=== PATIENT | male | born 1940 | race Caucasian/White ===

== ENCOUNTER 2020-12-04 18:25 | Emergency (ER) | payer MEDICARE, SELFPAY ==
[2020-12-04 18:27] VITALS: BP 159/69; PULSE 89; PULSE 90; RESP 17; TEMP 36.9; O2SAT 97; BMI 26.7
--- NOTE | 2020-12-04 19:00 | RAD_ITS ---
STUDY: X-RAY - RIGHT SHOULDER REASON FOR EXAM: Male, 80 years old. PT REPORTS FALLING LETI AND AGAIN TODAY, C/O RIGHT SHOULDER AND RIGHT UPPER BACK PAIN. DENIES LOC. TECHNIQUE: 2 view(s) of the shoulder. COMPARISON: None. FINDINGS: An acute comminuted displaced fracture of the inferior tip and lateral aspect of the scapula is present. There are also mildly displaced fractures at the lateral margins of the third, fourth, fifth, sixth, and seventh ribs with small underlying pleural hematoma/fluid but no visualized pneumothorax or consolidation. No additional acute fractures are seen. Rotator cuff suture anchors are present in the humeral head. There is moderate degenerative arthrosis of the glenohumeral articulation. Normal acromioclavicular joint. Normal acromion. Normal humeral head and visualized proximal humerus. The soft tissue structures are unremarkable. Normal visualized pulmonary apex. RAD/Shoulder min 2 Views IMPRESSION: 1. Acute comminuted fracture at the inferior tip of the right scapula 2. There are also mildly displaced fractures at the lateral margins of the third, fourth, fifth, sixth, and seventh ribs with small underlying pleural hematoma/fluid but no visualized pneumothorax or consolidation. Electronically Signed: Aldo Flowers MD at 20:00 EST , Service support ,
--- NOTE | 2020-12-04 19:29 | ED.VIS.GEN ---
History of Present Illness Chief Complaint: Upper Extremity Injury Informant: Patient, Family Narrative: 80-year-old male states that he is fallen twice in the past several days. He states the first time he slept today he lost his balance. He states on Thursday he sustained abrasion to his left elbow and injured his back but that that is healing up. Today he was bending forward lost his balance and landed on his right shoulder. He notes limited range of motion to the right shoulder. He denies any head injury. No nausea headache neck pain. Past Medical History - Allergies and Home Meds Allergies/Adverse Reactions: Allergies Sulfa (Sulfonamide Antibiotics) Allergy (Verified 12/04/20 18:30) NEEDS FOLLOW-UP Primary Care Physician: NOT,DEFINED [NON-STAFF] - Surgical History: noncontributory Lives: Spouse/ Significant Other Smoking Status: Never smoker Drugs: None Review of Systems General: Denies: Chills, Fever, Sweats Eyes: Denies: Visual changes - bilaterally, Diplopia ENT: Denies: Rhinorrhea, Sore throat Cardiovascular: Denies: Chest pain, Palpitations Respiratory: Denies: Dyspnea, Cough, Dyspnea on exertion Gastrointestinal: Denies: Abdominal pain, Nausea, Vomiting, Diarrhea, Melena, Hematochezia Genitourinary: Denies: Dysuria, Hematuria, Frequency Musculoskeletal: Reports: Extremity Pain. Denies: Back pain Skin: Reports: Abrasions. Denies: Rash, Wounds Neurological: Denies: Headache, Weakness, Numbness Physical Exam Vital Signs/Narrative: Vital Signs Temp Pulse Resp BP Pulse Ox 12/04/20 18:27 98.4 F 90 17 159/69 H 97 Inital Vital Signs reviewed: Yes General: Well nourished, Well developed, No Acute Distress Head: Normocephalic, Atraumatic Eyes: Perrl, EOMI ENT: Moist mucous membranes, No rhinorrhea Neck: Supple, Nontender Cardiovascular: Regular rate, Regular rhythm, No murmurs Respiratory: No distress, CTA bilaterally, Chest nontender Abdomen: Soft, Nontender, Nondistended, Normal bowel sounds Back: Spinal tenderness - Midline tenderness and paraspinal tenderness in the lumbar region Extremities: No edema, Tenderness - Tender to est[place] patient diffusely over the right shoulder. No obvious deformity. Skin: Normal color, No rash, Trauma - There is an abrasion that appears to be healing over the lateral aspect of the left elbow. Neurological: Alert, Oriented x3, Cranial nerves II-XII grossly intact, Normal Strength, Normal Sensation Psychological: Normal affect, Normal Mood Diagnostic/Tx/Re-eval Clinical Impression(s) from Imaging Studies Shoulder X-Ray 12/04/20 19:00 IMPRESSION: 1. Acute comminuted fracture at the inferior tip of the right scapula 2. There are also mildly displaced fractures at the lateral margins of the third, fourth, fifth, sixth, and seventh ribs with small underlying pleural hematoma/fluid but no visualized pneumothorax or consolidation. Electronically Signed: Aldo Flowers MD at 20:00 EST , Service support , Brain CT 12/04/20 20:06 IMPRESSION: No acute intracranial abnormality. Chronic ischemic and atrophic changes. Electronically Signed: Anthony Bray MD at 21:42 EST Tel , Service support , Cervical Spine CT 12/04/20 20:06 IMPRESSION: No fracture or dislocation in the cervical spine. Mild to moderate degenerative change which is more pronounced in the lower cervical spine. Electronically Signed: Anthony Bray MD at 21:49 EST Tel , Service support , Chest CT 12/04/20 20:06 IMPRESSION: Mild compression fracture of L2 vertebral body. Comminuted fracture of the body of the right scapula. Fracture of the right fourth rib. No pneumothorax. No additional acute traumatic findings in the thorax. N.B. : The above information has been verbally conveyed by Anthony Bray MD to Frandy Cheung MD, on 12/04/2020 22:03:46 (ET). Electronically Signed: Anthony Bray MD at 22:05 EST Tel , Service support , ADDENDUM: 12/04/202211 IMPRESSION: Mild compression fracture of L2 vertebral body. Comminuted fracture of the body of the right scapula. Fracture of the right fourth rib. No pneumothorax. No additional acute traumatic findings in the thorax. N.B. : The above information has been verbally conveyed by Anthony Bray MD to Frandy Cheung MD, on 12/04/2020 22:03:46 (ET). Electronically Signed: Anthony Bray MD at 22:05 EST Tel , Service support , Lumbar Spine CT 12/04/20 22:04 IMPRESSION: 1. Acute compression fracture of the L2 vertebral body 2. Multilevel degenerative changes, as described above. Electronically Signed: Aldo Flowers MD at 23:07 EST , Service support , Laboratory Last Values WBC 5.4 K/mm3 (4.4-11.0) 12/04/20 20:30 RBC 4.09 M/mm3 (4.6-6.2) L 12/04/20 20:30 Hgb 13.6 g/dL (13.0-16.5) 12/04/20 20:30 Hct 39.8 % (40-54) L 12/04/20 20:30 MCV 97.3 fL (80-94) H 12/04/20 20:30 MCH 33.3 pg (27.0-32.0) H 12/04/20 20:30 MCHC 34.2 g/dL (32-36) 12/04/20 20:30 RDW Std Deviation 44.9 fl (35.1-43.9) H 12/04/20 20:30 RDW Coeff of Dax 12.5 % (11.6-14.6) 12/04/20 20:30 Plt Count 170 K/mm3 (150-450) 12/04/20 20:30 MPV 9.3 fl (6.2-12.0) 12/04/20 20:30 Immature Gran % (Auto) 0.400 % (0.0-0.9) 12/04/20 20:30 Neut % (Auto) 73.3 % (47-70) H 12/04/20 20:30 Lymph % (Auto) 14.4 % (19-41) L 12/04/20 20:30 [place] % (Auto) 10.8 % (0-10) H 12/04/20 20:30 Eos % (Auto) 0.4 % (0-5) 12/04/20 20:30 Baso % (Auto) 0.7 % (0-1) 12/04/20 20:30 Absolute Neuts (auto) 3.9 X10^3/uL (2.0-7.7) 12/04/20 20:30 Absolute Lymphs (auto) 0.77 X10^3/uL (0.83-4.51) L 12/04/20 20:30 Nucleated RBC % 0 % (0-5) 12/04/20 20:30 PT 14.1 SECONDS (11.7-14.9) 12/04/20 20:30 INR 1.1 12/04/20 20:30 APTT 33.4 Seconds (24.1-36.2) 12/04/20 20:30 Sodium 133 mmol/L (136-145) L 12/04/20 20:30 Potassium 3.8 mmol/L (3.5-5.1) 12/04/20 20:30 Chloride 98 mmol/L (98-107) 12/04/20 20:30 Carbon Dioxide 25.0 mmol/L (21.0-32.0) 12/04/20 20:30 Anion Gap 10 (5-15) 12/04/20 20:30 BUN 9 mg/dL (7-18) 12/04/20 20:30 Creatinine 0.83 mg/dL (0.70-1.30) 12/04/20 20:30 Estim Creat Clear Calc 70.85 ml/min 12/04/20 20:30 Est GFR (MDRD) Af Amer 114 mL/min (>60) 12/04/20 20:30 Est GFR (MDRD) Non-Af 94 mL/min (>60) 12/04/20 20:30 BUN/Creatinine Ratio 10.8 RATIO (10-20) 12/04/20 20:30 Glucose 97 mg/dL (74-106) 12/04/20 20:30 Calcium 8.6 mg/dL (8.5-10.1) 12/04/20 20:30 Total Bilirubin 0.60 mg/dL (0.20-1.00) 12/04/20 20:30 AST 26 U/L (15-37) 12/04/20 20:30 ALT 19 U/L (16-61) 12/04/20 20:30 Alkaline Phosphatase 110 U/L (45-117) 12/04/20 20:30 Total Protein 7.1 g/dL (6.4-8.2) 12/04/20 20: Albumin 3.2 g/dL (3.2-5.0) 12/04/20 20: Globulin 3.9 g/dL (2.2-4.2) 12/04/20 20:30 Albumin/Globulin Ratio 0.8 RATIO (0.9-2.4) L 12/04/20 20:30 - Medical Decision Making Patient received oxycodone for pain. 80-year-old male found to have a body of the scapula fracture with displacement. This was reviewed with on-call orthopedics who recommends trauma Ortho evaluation. He was also found to have a fourth rib fracture but no hemo or pneumothorax or pulmonary contusion noted. There was noted to be an L2 compression fracture with 40 to 50% loss of height. Due to the multiple injuries trauma center evaluation was recommended he is a [facility] patient would [facility] to go to [facility]. I spoke with [facility] and they have accepted the patient to the emergency department. Imaging will be pushed through to them. He will also have a copy of his disc sent with him. ED Disposition - Plan for ED Patient: Disposition: [facility] Diagnosis: Right scapula fracture, Compression fracture of L2, Right rib fracture, Frequent falls Referrals: NOT,DEFINED [NON-STAFF] -
--- NOTE | 2020-12-04 20:06 | CT_ITS ---
STUDY: CT CHEST WITH CONTRAST REASON FOR EXAM: Male, 80 years old. Trauma RADIATION DOSAGE (If Supplied By Facility): CTDIvol = ( 7.49 ) mGy, DLP = ( 707.43 ) mGycm TECHNIQUE: Transaxial imaging was performed following intravenous administration of 100 cc of ISOVUE-370 ml of 100mL Isovue-370 contrast material. Coronal and sagittal reformatted images were created. Individualized dose optimization techniques were used for this CT. COMPARISON: None FINDINGS: The study is limited by patient motion and by streak artifact due to the patient''s arms being at his sides. There is a calcified granuloma in the left lower lobe. There are no pulmonary infiltrates or pleural effusions. There is atelectasis noted in the lung bases. There is no pneumothorax. The heart and pericardium are within normal limits. There is no thoracic lymphadenopathy. There is no evidence of thoracic aortic aneurysm. Images through the upper abdomen demonstrate a cyst in the left kidney. There is a comminuted fracture of the body of the right scapula. There is a fracture of the right fourth rib. There is a mild compression fracture (approximately 25% loss of height) of the L2 vertebral body. The remainder of the visualized thoracic osseous structures are intact. CT/Chest WITH Contrast IMPRESSION: Mild compression fracture of L2 vertebral body. Comminuted fracture of the body of the right scapula. Fracture of the right fourth rib. No pneumothorax. No additional acute traumatic findings in the thorax. N.B. : The above information has been verbally conveyed by Anthony Bray MD to Frandy Cheung MD, on 12/04/2020 22:03:46 (ET). Electronically Signed: Anthony Bray MD at 22:05 EST Tel , Service support ,
--- NOTE | 2020-12-04 20:06 | CT_ITS ---
STUDY: CT CERVICAL SPINE WITHOUT CONTRAST REASON FOR EXAM: Male, 80 years old. Trauma RADIATION DOSAGE (If Supplied By Facility): CTDIvol = ( 21.47 ) mGy, DLP = ( 454.33 ) mGycm TECHNIQUE: High resolution transaxial imaging was performed without contrast material. Sagittal and coronal images were reconstructed. Individualized dose optimization techniques were used for this CT. COMPARISON: None available. FINDINGS: There is no evidence of fracture or dislocation in the cervical spine. The dens is intact. Alignment is normal. The vertebral body heights are well-maintained. There are [id number] degenerative changes which are more pronounced in the lower cervical spine. The visualized paraspinal soft tissues are within normal limits. CT/Spine Cervical without Contras IMPRESSION: No fracture or dislocation in the cervical spine. Mild to moderate degenerative change which is more pronounced in the lower cervical spine. Electronically Signed: Anthony Bray MD at 21:49 EST Tel , Service support ,
--- NOTE | 2020-12-04 20:06 | CT_ITS ---
STUDY: CT BRAIN WITHOUT CONTRAST REASON FOR EXAM: Male, 80 years old. Trauma RADIATION DOSAGE (If Supplied By Facility): CTDIvol = ( 44.99 ) mGy, DLP = ( 849.54 ) mGycm TECHNIQUE: Transaxial CT imaging of the brain was performed without administration of intravenous contrast material. Individualized dose optimization techniques were used for this CT. COMPARISON: None. FINDINGS: There is no acute bleed or infarct. There are chronic ischemic and atrophic changes. The ventricles are normal in configuration. There is no hydrocephalus. The visualized paranasal sinuses are clear. The mastoid air cells are well aerated. There is no skull fracture. CT/Brain/Head without Contrast IMPRESSION: No acute intracranial abnormality. Chronic ischemic and atrophic changes. Electronically Signed: Anthony Bray MD at 21:42 EST Tel , Service support ,
[2020-12-04] MEDS: oxyCODONE 5 MG Tablet 10 MG PO (20:10)
[2020-12-04 20:44] LABS: Absolute Lymphocyte Count 0.77 X10^3/uL (0.83-4.51); Absolute Neutrophil Count 3.9 X10^3/uL (2.0-7.7); Basophil# 0.04 X10^3/uL; Basophil% 0.7 % (0-1); Eosinophil# 0.02 X10^3/uL; Eosinophils% 0.4 % (0-5); Hematocrit 39.8 % (40-54); Hemoglobin 13.6 g/dL (13.0-16.5); Lymphocyte # 0.77 X10^3/ul (4.0); Lymphocyte % 14.4 % (19-41); Mean Corp Hgb Conc 34.2 g/dL (32-36); Mean Corpuscular Hgb 33.3 pg (27.0-32.0); Mean Corpuscular Volume 97.3 fL (80-94); Mean Platelet Vol. 9.3 fl (6.2-12.0); Monocyte# 0.58 X10^3/uL; Monocyte% 10.8 % (0-10); NRBC Flagged by Analyzer 0 % (0-5); Neutrophil # 3.93 X10^3/uL (2.7-7.7); Neutrophil % 73.3 % (47-70); Platelet Count 170 K/mm3 (150-450); RBC Distribution Width CV 12.5 % (11.6-14.6); RBC Distribution Width SD 44.9 fl (35.1-43.9); Red Blood Count 4.09 M/mm3 (4.6-6.2); White Blood Count 5.4 K/mm3 (4.4-11.0)
[2020-12-04 20:53] LABS: International Normalized Ratio 1.1; Prothrombin Time (Protime)PT. 14.1 SECONDS (11.7-14.9)
[2020-12-04 20:54] LABS: Partial Thromboplast Time 33.4 Seconds (24.1-36.2)
[2020-12-04 21:03] LABS: ALB/GLOB Ratio 0.8 RATIO (0.9-2.4); AST(SGOT) 26 U/L (15-37); Alanine Aminotransfer ALT/SGPT 19 U/L (16-61); Albumin, Serum 3.2 g/dL (3.2-5.0); Alkaline Phosphatase 110 U/L (45-117); Anion Gap 10 (5-15); BUN 9 mg/dL (7-18); BUN/Creat Ratio 10.8 RATIO (10-20); Calcium,Total 8.6 mg/dL (8.5-10.1); Chloride 98 mmol/L (98-107); Creatinine, Serum 0.83 mg/dL (0.70-1.30); EST Glomerular Filtration Rate 94 mL/min (>60); Est Glom Filt Rate - Afr Amer 114 mL/min (>60); Estimated Creatinine Clearance 70.85 ml/min; Globulin 3.9 g/dL (2.2-4.2); Glucose 97 mg/dL (74-106); Potassium 3.8 mmol/L (3.5-5.1); Protein, Total 7.1 g/dL (6.4-8.2); Sodium Level 133 mmol/L (136-145)
[2020-12-04 21:39] VITALS: BP 180/83; PULSE 74; RESP 17; O2SAT 95
--- NOTE | 2020-12-04 22:04 | CT_ITS ---
STUDY: CT LUMBAR SPINE WITHOUT CONTRAST REASON FOR EXAM: Male, 80 years old. fracture RADIATION DOSAGE (If Supplied By Facility): CTDIvol = ( 24.26 ) mGy, DLP = ( 947.58 ) mGycm TECHNIQUE: The patient was scanned in a multi detector CT scanner. High resolution transaxial imaging was performed. Sagittal and coronal images were reconstructed. Individualized dose optimization techniques were used for this CT. COMPARISON: None FINDINGS: An acute compression fracture of the L2 vertebral body is present with approximately 40-50% loss of height and minimal retropulsion. No additional vertebral body or posterior element fractures are seen. Mild to moderate multilevel degenerative changes are present. Mild central canal stenosis is also present at several levels. Normal lumbar lordosis. There is no substantial scoliosis. Normal visualized paraspinous soft tissue structures. CT/Spine Lumbar without Contrast IMPRESSION: 1. Acute compression fracture of the L2 vertebral body 2. Multilevel degenerative changes, as described above. Electronically Signed: Aldo Flowers MD at 23:07 EST , Service support ,
--- NOTE | 2020-12-04 23:09 | CT_ITS ---
STUDY: CT ABDOMEN AND PELVIS WITHOUT CONTRAST REASON FOR EXAM: Male, 80 years old. trauma RADIATION DOSAGE (If Supplied By Facility): CTDIvol = ( 15.69 ) mGy, DLP = ( 897.57 ) mGycm TECHNIQUE: Transaxial 2.5 mm images were obtained from the dome of the diaphragm to the symphysis pubis without oral contrast, and without intravenous contrast. Sagittal and coronal images were reconstructed. This examination is limited for the evaluation of gastrointestinal, solid organs and vascular structures due to the lack of intravenous and oral contrast. Individualized dose optimization techniques were used for this CT. COMPARISON: None. FINDINGS: For a description of findings in the chest, please refer to the dedicated CT report performed by the Chest Imaging section the same day. Normal liver. Anterior interposition of colon. Normal gallbladder and extrahepatic biliary system. There are multiple benign calcified granulomata of the spleen. There is diffuse atrophy of the pancreas. Normal bilateral adrenal glands. Contrast excretion into bilateral renal collecting system and ureters, urinary bladder. Left exophytic upper renal pole cyst 3.3 cm. Normal visualized stomach. Normal small intestine. There are multiple colonic diverticula consistent with diverticulosis. There is non-visualization of the appendix. There is diffuse atherosclerotic calcification of the abdominal aorta, without a demonstrated aneurysm. Normal inferior vena cava. Normal retroperitoneum. Normal urinary bladder. Normal abdominal wall. Acute compression deformity involving the L2 vertebral body of approximately up to 50% height loss. No significant retropulsion of cortex detected. Please refer to CT lumbar spine. There are diffuse degenerative changes of the visualized lumbar spine, bilateral hip and sacroiliac joints, osteopenia, remote deformities of the right posterior 10th and 11 and left 11th, 10th and ninth rib. Remote healed sternal injury. CT/Abdomen/Pelvis without Cont IMPRESSION: Acute compression injury involving the L2 vertebral body with loss of vertebral body height up to 50%. No acute vascular, parenchymal, visceral or other osseous injury. Remote injury to the right and left lower hemithorax. Colonic diverticulosis, remote granulomatous exposure, renal cysts, pancreas involution, atherosclerosis, osteopenia, degenerative changes, remote trauma felt to be nonacute findings. Electronically Signed: Cici Bautista MD at 0:03 EST , Service support ,
[2020-12-04 23:26] VITALS: BP 163/93; PULSE 78; RESP 18; O2SAT 96
[2020-12-04 23:28] VITALS: BP 163/93; PULSE 81; RESP 18; O2SAT 95
--- NOTE | 2020-12-04 23:47 | ED.RN ---
DAUGHTER YOSI CALLED WITH UPDATE ON PT'S TRANSFER TO [facility], ALL QUESTIONS ANSWERED
== END 2020-12-04 23:47 | disposition short-term general hospital (02) ==
PROVIDERS: Emergency Provider Emergency Medicine; PCP Pediatrics
DX: S42.111A Displaced fracture of body of scapula, right shoulder, initial encounter for closed fracture (principal); S22.31XA Fracture of one rib, right side, initial encounter for closed fracture; S32.029A Unspecified fracture of second lumbar vertebra, initial encounter for closed fracture; S50.312A Abrasion of left elbow, initial encounter; W01.0XXA Fall on same level from slipping, tripping and stumbling without subsequent striking against object, initial encounter; R29.6 Repeated falls; Y93.9 Activity, unspecified; Y92.9 Unspecified place or not applicable; Y99.9 Unspecified external cause status
CPT/HCPCS: 70450; 71260; 72125; 72131; 73030; 74176; 80053; 85025; 85610; 85730; 99285; Q9967; A4216

== ENCOUNTER 2022-07-04 18:23 | Emergency (ER) | payer MEDICARE, SELFPAY ==
[2022-07-04 18:24] VITALS: BP 167/88; PULSE 78; RESP 16; TEMP 36.3; BMI 24.6
[2022-07-04 18:28] VITALS: BP 167/88; PULSE 78; RESP 16; TEMP 36.3
--- NOTE | 2022-07-04 19:59 | CT_ITS ---
STUDY: CT ABDOMEN AND PELVIS WITH CONTRAST ENHANCEMENT 2055 HOURS ON 07/04/2022 REASON FOR EXAM: 82-year-old male with flank trauma. RADIATION DOSAGE (If Supplied By Facility): CTDIvol = ( 14.74 ) mGy, DLP = ( 877.75 ) mGycm. TECHNIQUE: Transaxial images were obtained from the dome of the diaphragm to the symphysis pubis without oral contrast. 100 mL of Isovue 370 was administered intravenously for this study. Sagittal and coronal images were reconstructed. Individualized dose optimization techniques were used for this CT. COMPARISON: None. FINDINGS: There are no abdominal organ fractures, hemorrhage or hematomas. There is no evidence of retroperitoneal or intraperitoneal hemorrhage or hematomas. There are no findings of bladder perforation. The visualized lung bases are unremarkable. The visualized portions of the heart are within normal limits. Normal liver. Interposition of the hepatic flexure anterior to the liver, normal variant. Normal gallbladder and extrahepatic biliary system. No cholelithiasis or cholecystitis. Normal spleen. Atrophic pancreas without pancreatitis or pancreatic mass lesions. Normal bilateral adrenal glands. 3.9 cm exophytic cyst from the posterior superior pole of the left kidney. 3 mm simple cyst in the anterior superior pole of left kidney. 1.1 cm simple cyst anteriorly in the inferior pole left kidney. No other renal cystic or solid mass lesions, obstructive uropathy, or pyelonephritis. Normal visualized stomach. Normal small intestine. Mild constipation. No diverticulitis, colitis, or intestinal obstruction. The appendix is visualized and appears normal. No appendicitis. Appendix best visualized on axial images 72 through 75. Normal abdominal aorta. Normal inferior vena cava. Normal retroperitoneum. No abscesses, hernias, or solid mass lesions. Normal urinary bladder. 3.8 cm diameter mildly heterogeneous prostate Normal abdominal wall. Mild demineralization. Old moderate L2 vertebral body compression fracture. Marked narrowing L4-5 and L5-S1 intervertebral disc spaces. Moderate osteophytic degenerative changes in lumbar spine. Normal hips and pelvis. CT/Abdomen/Pelvis W IV Cont ONLY IMPRESSION: 1. No organ fractures, hemorrhage or hematomas. 2. No retroperitoneal or intraperitoneal hemorrhage or hematomas. 3. No bladder perforation. 4. No cholelithiasis, cholecystitis, or pancreatitis. 5. Multiple left renal cysts. Otherwise, normal kidneys without solid mass lesions or obstructive uropathy. No pyelonephritis. Normal bladder. 6. Mild constipation. 7. No appendicitis, diverticulitis, colitis, or intestinal obstruction. 8. No abscesses, hernias, or solid mass lesions. 9. Old L2 vertebral body moderate compression fracture, marked narrowing of the L4-5 and L5-S1 intervertebral disc spaces, moderate osteophytic degenerative changes of the lumbar spine, normal hips and pelvis, mild demineralization. Electronically Signed: Estrada Avila MD at 23:13 EDT ,
--- NOTE | 2022-07-04 19:59 | CT_ITS ---
STUDY: CT BRAIN WITHOUT CONTRAST ADMINISTRATION OF 2052 HOURS ON 07/04/2022 REASON FOR EXAM: 82-year-old male with head injury. RADIATION DOSAGE (If Supplied By Facility): CTDIvol = ( 44.99 ) mGy, DLP = ( 863.60 ) mGycm. TECHNIQUE: Transaxial CT imaging of the brain was performed without administration of intravenous contrast material. Individualized dose optimization techniques were used for this CT. Sagittal and coronal reconstructions were obtained and all were demonstrated in osseous and soft tissue algorithms. COMPARISON: No relevant priors. FINDINGS: Mild cortical, central, and cerebellar atrophy. No midline shift. No ischemic or hemorrhagic cerebral infarct. No intracranial neoplasms or intracranial metastatic disease. No subdural, epidural, or intracerebral hematoma, hemorrhage or contusion. Normal sella and pituitary. Normal brainstem and posterior fossa. Normal calvarium without fractures. Normal paranasal sinuses. CT/Brain/Head without Contrast IMPRESSION: 1. Mild cortical, central, and cerebellar atrophy. 2. No subdural, epidural, or intracerebral hematoma, hemorrhage or contusion. 3. No infarcts or mass lesions. 4. No other intracranial pathology. 5. Normal calvarium without fractures. 6. Normal paranasal sinuses. Electronically Signed: Estrada Avila MD at 22:46 EDT ,
[2022-07-04 20:19] LABS: Absolute Lymphocyte Count 1.41 X10^3/uL (0.83-4.51); Absolute Neutrophil Count 3.3 X10^3/uL (2.0-7.7); Basophil# 0.04 X10^3/uL; Basophil% 0.7 % (0-1); Eosinophil# 0.08 X10^3/uL; Eosinophils% 1.5 % (0-5); Hematocrit 44.8 % (40-54); Hemoglobin 15.1 g/dL (13.0-16.5); Lymphocyte # 1.41 X10^3/ul (0.83-4.51); Lymphocyte % 25.9 % (19-41); Mean Corp Hgb Conc 33.7 g/dL (32-36); Mean Corpuscular Hgb 32.8 pg (27.0-32.0); Mean Corpuscular Volume 97.2 fL (80-94); Monocyte# 0.62 X10^3/uL; Monocyte% 11.4 % (0-10); NRBC Flagged by Analyzer 0 % (0-5); Neutrophil # 3.28 X10^3/uL (2.7-7.7); Neutrophil % 60.3 % (47-70); Platelet Count 169 K/mm3 (150-450); RBC Distribution Width CV 12.3 % (11.6-14.6); Red Blood Count 4.61 M/mm3 (4.6-6.2); White Blood Count 5.4 K/mm3 (4.4-11.0)
[2022-07-04 20:27] VITALS: RESP 17
[2022-07-04 20:33] LABS: Mucous, Urine 0 SEEN /hpf (<or=2+); Red Blood Cells-Urine 0 SEEN /hpf (0-5); White Blood Cells 0 SEEN /hpf (0-5)
[2022-07-04 20:40] LABS: Color, Urine Yellow (Yellow); Glucose, Dipstick Normal (Normal); Ketone-Dipstick 5 mg/dl (Negative); Leukocyte Esterase-Dipstick Negative /ul (Negative); Nitrite-Dipstick Negative (Negative); Occult Blood-Urine Negative /ul (Negative); Protein-Dipstick Negative (Negative); Urine Bilirubin Dipstick Negative (Negative); Urine Clarity Clear (Clear); Urine Urobilinogen Normal (Normal)
[2022-07-04 20:44] LABS: ALB/GLOB Ratio 0.7 RATIO (0.9-2.4); AST(SGOT) 19 U/L (15-37); Alanine Aminotransfer ALT/SGPT 17 U/L (16-61); Albumin, Serum 3.1 g/dL (3.2-5.0); Alkaline Phosphatase 82 U/L (45-117); Anion Gap 7 (5-15); BUN 9 mg/dL (7-18); BUN/Creat Ratio 10.8 RATIO (10-20); Chloride 102 mmol/L (98-107); Creatinine, Serum 0.83 mg/dL (0.70-1.30); EST Glomerular Filtration Rate 93 mL/min (>60); Est Glom Filt Rate - Afr Amer 113 mL/min (>60); Estimated Creatinine Clearance 70.56 ml/min; Globulin 4.2 g/dL (2.2-4.2); Glucose 88 mg/dL (74-106); Potassium 4.3 mmol/L (3.5-5.1); Protein, Total 7.3 g/dL (6.4-8.2); Sodium Level 137 mmol/L (136-145)
[2022-07-04 20:47] LABS: Squamous Epithelial Cells - UA 0-5 SEEN /hpf (0-5)
[2022-07-04 20:48] LABS: Bacteria RARE /hpf (None Seen)
[2022-07-04 22:00] VITALS: RESP 18
--- NOTE | 2022-07-04 22:42 | EX.ED.DYSGE1 ---
HPI History of Present Illness Chief Complaint: Abd Pain Informant: patient Narrative Narrative: Patient is an 82-year-old male with history of diarrhea and GI bleeding pain with abdominal pain. Apparently patient had a slip and was off balance in the shower 5 days ago. He fell into the shower wall. He might of hit his head he is not sure. No loss of conscious. He did not fall to the ground. He has had some associated right abdominal pain just to the right and below his umbilicus and right flank pain since. He went to [facility] urgent care the following day where he had rib x-rays which were negative. He is continue to have pain and went to urgent care earlier tonight and when they did abdominal exam he jumped off the table when they palpated his right lower quadrant. Patient was found to have ecchymosis to his right flank and right lower abdomen. He was sent to the ER for further evaluation. Patient is on any blood thinners and does not take a daily aspirin. He does not recall any changes to his bowel movements. No report of any change of appetite. No nausea or vomiting. No other complaints at this time. [facility] Medical History Diarrhea Gout Lower GI bleeding Home Medications lidocaine 5 % topical patch 1 patch transdermal DAILY 07/04/22 [History Last Taken Unknown] loperamide 2 mg capsule 2 mg PO DAILY 07/04/22 [History Last Taken Unknown] Allergy/AdvReac Type Severity Reaction Status Date / Time Sulfa (Sulfonamide Allergy NEEDS Verified 08/19/21 13:33 Antibiotics) FOLLOW-UP Social History Smoking Status: Never smoker ROS ROS ED Constitutional Constitutional ED: Denies chills or fever(s) Eyes Eyes: Denies change in vision ENT ENT ED: Denies rhinorrhea or sore throat Cardiovascular Cardiovascular: Denies chest pain Respiratory/Chest Respiratory/Chest: Denies cough Gastrointestinal Gastrointestinal: Reports abdominal pain and diarrhea; Denies nausea or vomiting Genitourinary Genitourinary ED: Denies dysuria or hematuria Musculoskeletal Musculoskeletal: Reports back pain; Denies arthralgias or neck pain Integumentary Denies Abrasions or rash Neurologic Neurologic: Denies headache(s) or weakness Psychiatric Psychiatric: Denies anxiety Hematologic/Lymphatic Hematologic/Lymphatic: Denies easy bleeding or easy bruising EXAM Physical Exam Const Vital Signs: 07/04/22 18:24 07/04/22 18:28 07/04/22 20:27 Temperature 97.3 F L 97.3 F L Temperature Source Temporal Temporal Pulse Rate 78 78 Respiratory Rate 16 16 17 Blood Pressure 167/88 H 167/88 H Blood Pressure Mean 114 114 Pulse Ox Oxygen Delivery Method Room Air 07/04/22 22:00 07/04/22 22:45 Temperature Temperature Source Pulse Rate 68 Respiratory Rate 18 18 Blood Pressure 154/74 H Blood Pressure Mean Pulse Ox 98 Oxygen Delivery Method Room Air Positive well nourished and well developed General Appearance ED: well developed and NAD HEENT Reports moist mucous membranes Negative for trauma Eyes PERRL and EOMs intact bilaterally Neck supple and no JVD Chest Wall inspection of chest normal and palpation of chest normal Resp normal respiratory effort and clear to auscultation bilaterally Cardio regular rate, regular rhythm and no murmurs GI normal to inspection, nondistended, normoactive bowel sounds, non-tender and non-distended Palpation: Negative for guarding or mass Back/Spine no CVA tenderness Extremity normal to inspection Neuro oriented x3 and CN's II-XII intact bilaterally Motor Exam: Negative for general weakness Psych mental status grossly normal Skin Skin Narrative: Ecchymosis to the right flank and right lower lateral abdomen head, no hematoma appreciated MDM MDM MDM Narrative Medical decision making narrative: Is evaluated for mechanical fall with subsequent injury to his right flank. He previously had rib series which were normal at urgent care per patient report. His vital signs are significant only for mild hypertension. CBC is normal as well as unremarkable CMP. Urinalysis shows 5 ketones but no red blood cells. CT of the abdomen and pelvis are pending Patient and ride are tired of waiting. They pleasantly asked to just go home at this point. Counseled that while I do not see any acute process on the CT of the brain or abdomen pelvis I do not have the final read back. They state that they would still like to go home. I will contact them if there are any acute abnormalities on the CT. CTs do not show any acute process. Lab Data Attestation: I reviewed the patient's lab results. Labs: Laboratory Results - last 24 hr 07/04/22 07/04/22 07/04/22 19:45 19:45 20:15 WBC 5.4 RBC 4.61 Hgb 15.1 Hct 44.8 MCV 97.2 H MCH 32.8 H MCHC 33.7 RDW Std Deviation 44.0 H RDW Coeff of Dax 12.3 Plt Count 169 MPV 10.0 Immature Gran % (Auto) 0.200 Neut % (Auto) 60.3 Lymph % (Auto) 25.9 [place] % (Auto) 11.4 H Eos % (Auto) 1.5 Baso % (Auto) 0.7 Absolute Neuts (auto) 3.3 Absolute Lymphs (auto) 1.41 Nucleated RBC % 0 Sodium 137 Potassium 4.3 Chloride 102 Carbon Dioxide 28.0 Anion Gap 7 BUN 9 Creatinine 0.83 Estim Creat Clear Calc 70.56 Est GFR (MDRD) Af Amer 113 Est GFR (MDRD) Non-Af 93 BUN/Creatinine Ratio 10.8 Glucose 88 Calcium 9.0 Total Bilirubin 0.70 AST 19 ALT 17 Alkaline Phosphatase 82 Total Protein 7.3 Albumin 3.1 L Globulin 4.2 Albumin/Globulin Ratio 0.7 L Urine Color Yellow Urine Clarity Clear Urine pH 7.0 Ur Specific [place] 1.010 Urine Protein Negative Urine Glucose (UA) Normal Urine Ketones 5 H Urine Occult Blood Negative Urine Nitrite Negative Urine Bilirubin Negative Urine Urobilinogen Normal Ur Leukocyte Esterase Negative Urine RBC 0 SEEN Urine WBC 0 SEEN Ur Squamous Epith Cells 0-5 SEEN Urine Bacteria RARE Urine Mucus 0 SEEN Radiography Diagnostic Testing: Clinical Impression(s) from Imaging Studies Abdomen/Pelvis CT 07/04/22 19:59 IMPRESSION: 1. No organ fractures, hemorrhage or hematomas. 2. No retroperitoneal or intraperitoneal hemorrhage or hematomas. 3. No bladder perforation. 4. No cholelithiasis, cholecystitis, or pancreatitis. 5. Multiple left renal cysts. Otherwise, normal kidneys without solid mass lesions or obstructive uropathy. No pyelonephritis. Normal bladder. 6. Mild constipation. 7. No appendicitis, diverticulitis, colitis, or intestinal obstruction. 8. No abscesses, hernias, or solid mass lesions. 9. Old L2 vertebral body moderate compression fracture, marked narrowing of the L4-5 and L5-S1 intervertebral disc spaces, moderate osteophytic degenerative changes of the lumbar spine, normal hips and pelvis, mild demineralization. Electronically Signed: Estrada Avila MD at 23:13 EDT , Brain CT 07/04/22 19:59 IMPRESSION: 1. Mild cortical, central, and cerebellar atrophy. 2. No subdural, epidural, or intracerebral hematoma, hemorrhage or contusion. 3. No infarcts or mass lesions. 4. No other intracranial pathology. 5. Normal calvarium without fractures. 6. Normal paranasal sinuses. Electronically Signed: Estrada Avila MD at 22:46 EDT , Discharge Plan Triage Chief Complaint: Abd Pain ED Provider: Shell Butcher Dx/Rx/DC Orders Clinical Impression: Contusion of flank, Abdominal wall contusion, Closed head injury Instructions: ED Soft Tissue Contusion, ED Abdominal Pain Unkn Cause Male... Prescriptions: No Action lidocaine 5 % adhesive patch,medicated 1 patch transdermal DAILY Label Comments: APPLY 1 (ONE) PATCH DIRECTED EVERY 12 HOURS. REMOVE OLD PATCH PRIOR TO PLACING A NEW PATCH. LOCATION RIGHT BACK loperamide 2 mg capsule 2 mg PO DAILY Label Comments: TAKE 1 CAPSULE BY MOUTH FOUR TIMES DAILY NEEDED Primary Care Provider: Uriel Ziegler Referrals: Uriel Ziegler DO [Primary Care Provider] - Activity Restrictions/Additional Instructions: Your official CT reads are not back. This possibly could be missing something more serious. We will contact you if there is an abnormality on the reads. Your blood work came back normal. Take Tylenol for discomfort. Return the emergency room with any further concerns. Disposition Disposition: Home, Self Care Discharge Date/Time: 07/04/22 22:45
[2022-07-04 22:45] VITALS: BP 154/74; PULSE 68; RESP 18; O2SAT 98
== END 2022-07-04 22:45 | disposition home or self-care (01) ==
PROVIDERS: Emergency Provider Emergency Medicine; PCP Pediatrics; Visit Provider Emergency Medicine
DX: S30.1XXA Contusion of abdominal wall, initial encounter (principal); S09.90XA Unspecified injury of head, initial encounter; W01.10XA Fall on same level from slipping, tripping and stumbling with subsequent striking against unspecified object, initial encounter; Y93.E1 Activity, personal bathing and showering; I10 Essential (primary) hypertension; Z79.899 Other long term (current) drug therapy
CPT/HCPCS: 70450; 74177; 80053; 81001; 85025; 99283; Q9967; A4216

== ENCOUNTER 2023-01-27 11:51 | Emergency (ER) | payer MEDICARE, SELFPAY ==
[2023-01-27 11:55] VITALS: BP 182/83; PULSE 74; RESP 16; TEMP 36.4; O2SAT 100; BMI 26.8
[2023-01-27 11:59] VITALS: O2SAT 100
--- NOTE | 2023-01-27 12:34 | EX.ED.GENINJ ---
HPI History of Present Illness Chief Complaint: Fall Informant: patient Narrative Narrative: Patient is an 82-year-old male with history of chronic diarrhea presenting with left-sided chest wall pain. Patient states he was going to the [email or web address] this morning when he tripped and fell. He landed on an outstretched hand with his left. His chest wall did hit his left hand. He denied hitting his head or any loss of consciousness. He did scrape up his left knee and his left hand. The [email or web address] called EMS and evaluated him. He states he went to go home. He notes he did take Tylenol this morning before the fall. When he was back at home today he had a sharp pain in his left chest that he felt like was going into his heart so he decided to come to the emergency room. He was concerned this could be something wrong with his heart however he thinks this really is associated with his ribs. He denies any difficulty breathing but notes his pain is worse when he takes a deep breath. He denies any history of hypertension but states that when he has cataract surgery his blood pressure is also high. States he was nervous about the procedure. Patient denies any other complaints at this time. [facility] Medical History Diarrhea Gout Lower GI bleeding Home Medications loperamide 2 mg capsule 2 mg PO DAILY 07/04/22 [History Last Taken Unknown] Allergy/AdvReac Type Severity Reaction Status Date / Time Sulfa (Sulfonamide Allergy NEEDS Verified 08/19/21 13:33 Antibiotics) FOLLOW-UP Social History Smoking Status: Never smoker ROS ROS ED Constitutional Constitutional ED: Denies chills or fever(s) Eyes Eyes: Denies blurry vision or change in vision ENT ENT ED: Denies rhinorrhea or sore throat Cardiovascular Cardiovascular: Reports chest pain; Denies palpitations Respiratory/Chest Respiratory/Chest: Denies cough, dyspnea or dyspnea on exertion Gastrointestinal Gastrointestinal: Denies abdominal pain, nausea or vomiting Musculoskeletal Musculoskeletal: Denies arthralgias or myalgias Integumentary Reports Abrasions Neurologic Neurologic: Denies headache(s), paresthesias or weakness Psychiatric Psychiatric: Denies anxiety Hematologic/Lymphatic Hematologic/Lymphatic: Denies easy bleeding or easy bruising EXAM Physical Exam Const Vital Signs: 01/27/23 11:55 01/27/23 11:59 01/27/23 14:59 Temperature 97.6 F L Temperature Source Oral Pulse Rate 74 Respiratory Rate 16 16 Respiratory Effort Normal Non-Labored Respiratory Depth Normal Respiratory Pattern Normal Blood Pressure 182/83 H 103/80 Blood Pressure Mean 116 Pulse Ox 100 100 Oxygen Delivery Method Room Air Room Air Positive well nourished and well developed General Appearance ED: well developed and NAD HEENT atraumatic Nose: Negative for septum abnormal Eyes PERRL and EOMs intact bilaterally Neck full ROM General: Negative for tenderness Chest Wall inspection of chest normal Chest Narrative: No chest wall crepitus. No flail chest sign. Patient is a tenderness to palpation of the left anterior chest wall around approximately ribs 3 and 4. Resp normal respiratory effort and clear to auscultation bilaterally Effort and Inspection: pain with movement Cardio regular rhythm and no murmurs Cardio Narrative: 2+ bilateral radial pulses Rate: regular rate GI normal to inspection, nondistended, normoactive bowel sounds and non-tender Back/Spine normal to inspection and no thoracic nor lumbar tenderness Extremity normal to inspection and full ROM General Extremety ED: Negative for deformity General Extremity: Negative for deformity Neuro oriented x3 and moves all extremities Sensorium / Orientation: alert Psych mental status grossly normal and thought process normal Skin Skin Narrative: Scattered abrasions and skin tears over the left hand, wrist and knee. No active bleeding. No full-thickness wounds. MDM MDM MDM Narrative Medical decision making narrative: Patient's evaluated for left-sided chest pain after mechanical fall. Seems to be muscle skeletal. Is worse with deep inspiration. Is reproducible to palpation. Very low suspicion for ACS as a cause of his pain. Initially patient is hypertensive however he does report healthcare associated anxiety. Blood pressure improved significantly without any intervention. He is given a Lidoderm patch and Tylenol for pain control. He did not hit his head so I do not think any head imaging is indicated. X-ray of the chest as well as the left ribs show multiple healed rib fractures but no acute abnormality. Patient feels that he is adequate pain control. Discussed that small fractures can be missed on x-rays but are treated the same as contusions with pain control and incentive spirometer. Patient is given an incentive spirometer. Patient is given return precautions to the ER. He does not require any suture repair for his abrasions. Patient is agreeable with plan of care. He has his daughter to help him if needed. He will return to the ER with further concerns or if his symptoms worsen. Patient declines anything more for pain in the emergency room. He ambulates easily in the emergency room. Differential diagnosis includes rib contusion, rib fracture, chest wall strain, pneumothorax Radiography Diagnostic Testing: Clinical Impression(s) from Imaging Studies Ribs w/Chest X-Ray 01/27/23 12:45 IMPRESSION: RIBS: Multiple healed left toe fractures. CHEST: No acute abnormality is seen. Electronically Signed: Julian Avalos MD at 13:18 EDT , ADDENDUM: 01/27/23 1456 IMPRESSION: Multiple healed left rib fractures. Electronically Signed: Julian Avalos MD at 14:49 EDT , Rhythm Strip Rhythm Strip: Sinus Rhythm Rate: 63 Ectopy: None EKG Initial EKG: Attestation: I personally reviewed and interpreted this EKG as follows: Interpretation: Sinus Rhythm Comments: Normal sinus rhythm at a rate of 63 bpm First-degree block with a OK interval of 232, PAC present Normal axis Normal intervals Normal ST segment Discharge Plan Triage Chief Complaint: Fall ED Provider: Shell Butcher Dx/Rx/DC Orders Clinical Impression: Chest wall contusion, Abrasions of multiple sites, Fall Instructions: ED Fall Prevention, ED Rib Contusion or Minor Fracture Prescriptions: No Action loperamide 2 mg capsule 2 mg PO DAILY Label Comments: TAKE 1 CAPSULE BY MOUTH FOUR TIMES DAILY NEEDED Primary Care Provider: Uriel Ziegler Referrals: Uriel Ziegler DO [Primary Care Provider] - Activity Restrictions/Additional Instructions: Alternate ibuprofen and Tylenol as needed for pain. He may also use [id number] Lidoderm patch for pain. Use incentive spirometer multiple times a day to help prevent pneumonia associated with rib injury. If you have progression or worsening your symptoms please return to the emergency room. Your chest x-ray did not show any acute/new fractures but you do have old rib fractures. Disposition Disposition: Home, Self Care Discharge Date/Time: 01/27/23 15:00
--- NOTE | 2023-01-27 12:37 | ED.RN ---
NO OLD EKGS LISTED.
[2023-01-27] MEDS: Lidocaine 5% Patch 1 PATCH TOPICAL (12:42)
[2023-01-27] MEDS: Acetaminophen 325 MG Tablet 650 MG PO (12:43)
--- NOTE | 2023-01-27 12:45 | RAD_ITS ---
STUDY: X-RAY - BILATERAL RIBS WITH CHEST REASON FOR EXAM: Male, 82 years old. Fall, left chest wall injury TECHNIQUE - RIBS: 6 view(s) of the ribs. TECHNIQUE - CHEST: Single PA view of the chest. COMPARISON: None. FINDINGS - RIBS : Normal visualized ribs without a demonstrated fracture. FINDINGS - CHEST: Calcified granulomas in the left lower lobe. There is no demonstrated pleural abnormality. Normal size heart. Normal mediastinum and jaime. Normal visualized pulmonary arteries. There is atherosclerotic calcification of the aortic arch with tortuosity. There are diffuse degenerative changes of the visualized thoracic spine. Multiple healed left rib fractures. There is no demonstrated abnormality of the visualized soft tissue structures of the upper abdomen. RAD/Ribs Jeffy Min 4V w/PA Chest IMPRESSION: RIBS: Multiple healed left toe fractures. CHEST: No acute abnormality is seen. Electronically Signed: Julian Avalos MD at 13:18 EDT ,
--- NOTE | 2023-01-27 14:55 | ED.RN ---
at pt request, this rn contacted pt daughter who reports she will be up in 15 minutes to pick him up.
[2023-01-27 14:59] VITALS: BP 103/80; RESP 16
== END 2023-01-27 15:00 | disposition home or self-care (01) ==
PROVIDERS: Emergency Provider Emergency Medicine; PCP Pediatrics; Visit Provider Emergency Medicine
DX: S20.20XA Contusion of thorax, unspecified, initial encounter (principal); S61.412A Laceration without foreign body of left hand, initial encounter; S61.512A Laceration without foreign body of left wrist, initial encounter; S81.012A Laceration without foreign body, left knee, initial encounter; W18.09XA Striking against other object with subsequent fall, initial encounter; Y92.510 Bank as the place of occurrence of the external cause
CPT/HCPCS: 71111; 93005; 99285

== ENCOUNTER 2023-06-28 08:28 | Emergency (ER) | payer MEDICARE, SELFPAY ==
[2023-06-28 08:29] VITALS: BP 130/76; PULSE 82; RESP 14; TEMP 36.9; O2SAT 97; BMI 26.6
--- NOTE | 2023-06-28 08:42 | EDS_ITS ---
HPI History of Present Illness Chief Complaint: Upper Extremity Injury Informant: patient and family Narrative Narrative: 83-year old active male presenting to the emergency room with right wrist and hand injury. Patient states he sustained a mechanical fall last night. He states he landed on his hip which appears uninjured. He states he is unsure of exactly how he would have injured the wrist but he notes swelling over the dorsum of the hand and the wrist. He notes limited range of motion secondary to pain. He denies other injuries. [facility] Medical History Diarrhea Gout Lower GI bleeding Home Medications loperamide 2 mg capsule 2 mg PO DAILY 07/04/22 [History Last Taken Unknown] Allergy/AdvReac Type Severity Reaction Status Date / Time Sulfa (Sulfonamide Allergy NEEDS Verified 06/28/23 08:29 Antibiotics) FOLLOW-UP Social History Smoking Status: Never smoker ROS ROS ED Constitutional Constitutional ED: Denies chills, fever(s) or weight loss Eyes Eyes: Denies change in vision or diplopia ENT ENT ED: Denies ear pain, rhinorrhea or sore throat Cardiovascular Cardiovascular: Denies chest pain, orthopnea, palpitations or racing heartbeat Respiratory/Chest Respiratory/Chest: Denies cough, dyspnea or orthopnea Gastrointestinal Gastrointestinal: Denies abdominal pain, diarrhea, nausea or vomiting Genitourinary Genitourinary ED: Denies dysuria, hematuria or urinary frequency Musculoskeletal Musculoskeletal: Reports other Details: See history of present illness ; Denies arthralgias or myalgias Integumentary Reports other; Denies abscess or rash Neurologic Neurologic: Denies headache(s) or weakness Psychiatric Psychiatric: Denies anxiety, depression, suicidal ideation or suicidal thoughts Endocrine Endocrinology: Denies polydipsia, polyphagia or polyuria Allergic/Immunologic Allergic/Immunologic ED: Denies mouth swelling, tongue swelling or urticaria EXAM Physical Exam Const Vital Signs: 06/28/23 08:29 Temperature 98.4 F Temperature Source Temporal Pulse Rate 82 Respiratory Rate 14 Blood Pressure 130/76 H Blood Pressure Mean 94 Pulse Ox 97 Oxygen Delivery Method Room Air Positive well nourished and well developed General Appearance ED: well developed HEENT Reports normocephalic, head/scalp atraumatic and moist mucous membranes Eyes PERRL and EOMs intact bilaterally Neck no lymphadenopathy, supple and no JVD Resp normal respiratory effort and clear to auscultation bilaterally Cardio regular rate and regular rhythm Cardio Narrative: 2 out of 6 systolic murmur GI normal to inspection, nondistended, normoactive bowel sounds and non-tender Palpation: soft Back/Spine no CVA tenderness and normal ROM Extremity Extremity Narrative: There is swelling and some ecchymosis noted laterally over the dorsum of the rig ht hand. Tenderness along the first and second metacarpal and over the carpal bones. There is tenderness over the lateral right wrist. Neurovascular intact. Chronic changes associated with arthritic disease of the fingers General Extremety ED: Negative for edema General Extremity: Negative for edema Neuro oriented x3 and CN's II-XII intact bilaterally Sensorium / Orientation: alert Motor Exam: strength 5/5 throughout Psych mental status grossly normal Mood & Affect: Negative for depressed or tearful Skin no rashes or lesions noted and no wounds MDM MDM MDM Narrative Medical decision making narrative: My interpretation of the plain films of the right hand is an acute fracture of the distal radius. This is appreciated on only the AP view and appears intra- articular but nondisplaced My interpretation of the plain films of the right wrist is an acute fracture of the distal radius.This is appreciated on only the AP view and appears intra- articular but nondisplaced. Please see the radiology reads Patient declines pain medication but did place ice on the wrist. He was placed in a anterior posterior short plaster splint made by this physician. Neurovascular intact pre and post application. He will follow-up locally with orthopedics. Discharge Plan Triage Chief Complaint: Upper Extremity Injury ED Provider: Frandy Cheung Dx/Rx/DC Orders Clinical Impression: Closed fracture of distal end of radius, Fall Instructions: Wrist Fracture Prescriptions: No Action loperamide 2 mg capsule 2 mg PO DAILY Patient Comments: TAKE 1 CAPSULE BY MOUTH FOUR TIMES DAILY NEEDED Primary Care Provider: Andrew Schafer Referrals: Uriel Ziegler DO [Non-Staff] - Lan Tuttle DO [Med Staff - Active Staff] - As soon as possible Disposition Disposition: Home, Self Care
--- NOTE | 2023-06-28 08:47 | RAD_ITS ---
HISTORY: INJURY. TECHNIQUE: XR Wrist Min 3 Views. COMPARISON: None. FINDINGS: BONES : No acute fracture identified. Small chronic well-corticated fragment at the ulnar styloid. Well-corticated ossification posterior to the carpus also noted. Old fracture of the fourth metacarpal mid diaphysis. JOINTS: No dislocation. Mild widening of the scapholunate interval. Mild degenerative change. SOFT TISSUES: Mild soft tissue swelling. Peripheral vascular disease present. RAD/Wrist min 3 Views IMPRESSION: No acute fracture or dislocation identified in the right wrist. Old fractures of the ulnar styloid and fourth metacarpal. Mild widening of the scapholunate interval, which can be seen with ligamentous injury. Electronically Signed: Thania Melendez MD at 9:09 EDT ,
--- NOTE | 2023-06-28 08:47 | RAD_ITS ---
HISTORY: INJURY. TECHNIQUE: XR Hand Min 3 Views. COMPARISON: None. FINDINGS: BONES : No acute fracture identified. Old fracture of the ulnar styloid. Old fracture of the fourth metacarpal mid diaphysis. JOINTS: No dislocation. Moderate osteoarthritis. SOFT TISSUES: Mild soft tissue swelling. Peripheral vascular disease noted. 2 mm density in the second and third finger web space. RAD/Hand Min 3 Views IMPRESSION: No acute fracture or dislocation identified in the right hand. Old fractures of the ulnar styloid and fourth metacarpal. Small density in the webspace between the second and third fingers, concerning for foreign body. Electronically Signed: Thania Melendez MD at 9:10 EDT ,
== END 2023-06-28 09:18 | disposition home or self-care (01) ==
PROVIDERS: Emergency Provider Emergency Medicine; PCP Family Medicine; Visit Provider Emergency Medicine
DX: S52.501A Unspecified fracture of the lower end of right radius, initial encounter for closed fracture (principal); W18.30XA Fall on same level, unspecified, initial encounter
CPT/HCPCS: 29125; 73110; 73130; 99281; 99282

== ENCOUNTER 2023-07-03 07:14 | Emergency (ER) | payer MEDICARE, SELFPAY ==
[2023-07-03 07:15] VITALS: BP 134/78; PULSE 64; RESP 14; TEMP 36.4; O2SAT 99; BMI 26.6
--- NOTE | 2023-07-03 07:28 | EDS_ITS ---
HPI History of Present Illness Chief Complaint: Wound Check Narrative Narrative: 83-year-old male was seen in the emergency department approximately 5 days ago for distal radius fracture. He was placed in a plaster AP splint by the emergency physician. He noticed bruising and discoloration of his right thumb. There is mild swelling noted. He presents mainly for a wound check and splint check because he was concerned of the discoloration of the skin of his thumb. He states he has been elevating it when possible. He has an appointment with an orthopedic surgeon next week. [facility] Medical History Diarrhea Gout Lower GI bleeding Home Medications loperamide 2 mg capsule 2 mg PO DAILY 07/04/22 [History Last Taken Unknown] Allergy/AdvReac Type Severity Reaction Status Date / Time Sulfa (Sulfonamide Allergy NEEDS Verified 07/03/23 07:15 Antibiotics) FOLLOW-UP Social History Smoking Status: Never smoker ROS ROS ED ROS Narrative Constitutional: No fever, no chills. HEENT: No sore throat. No neck pain. No loss of vision. No rhinorrhea. Cardiovascular: No chest pain. No palpitations. No pedal edema. Respiratory: No cough, no shortness of breath. Abdominal: No abdominal pain. No nausea. No vomiting. Genitourinary: No dysuria. No hematuria. Musculoskeletal: No myalgias. Right wrist with AP splint. Noticed discoloration and mild swelling of right thumb. Neurologic: No headaches. No dizziness. No lightheadedness. Skin: No rash. No change in color. Psychiatric: No depression. No anxiety. EXAM Physical Exam Narrative Exam Narrative: Afebrile. Vital signs noted. HEENT: Normocephalic. Atraumatic. PERRL, EOMI. Neck soft and supple. No point tenderness or step off. Cardiovascular: Regular rate and rhythm. No murmurs, rubs, or gallops appreciated. Respiratory: No tachypnea. Lungs clear to auscultation bilaterally. Gastrointestinal: Abdomen soft, nontender, with normoactive bowel sounds. No r ebound or guarding. Neurological: Awake. Alert. Nonfocal, nonlateralizing. Skin: No rash. Normal color. No pallor. Musculoskeletal: No pedal edema. Right wrist and AP plaster splint. There is enough space in between. He does have dependent edema of his right thumb with mild discoloration, but good capillary refill. He is able to oppose his thumb in the splint. He has good capillary refill to all his fingers. Const Vital Signs: 07/03/23 07:15 Temperature 97.6 F L Temperature Source Temporal Pulse Rate 64 Respiratory Rate 14 Blood Pressure 134/78 H Blood Pressure Mean 96 Pulse Ox 99 Oxygen Delivery Method Room Air MDM MDM MDM Narrative Medical decision making narrative: Patient is here for a splint check. I do not feel it is too tight and I do feel this is more dependent edema secondary from his fracture as when he sleeps he probably puts his arm down although he states he starts with it elevated. He does have good circulation to his fingertips. He was reassured. I feel he be discharged to follow-up with orthopedics. He was told to continue elevating his right arm when possible. Return instructions to the emergency department were kaylene barahona. I do not feel he requires observation or new splint. Disposition is discharged home in stable condition. Differential Diagnosis Differential Diagnosis: Not applicable Discharge Plan Triage Chief Complaint: Wound Check ED Provider: Garrett Clifton Dx/Rx/DC Orders Clinical Impression: Swelling of thumb, Visit for wound check, Dependent edema Instructions: ED Fracture, Wrist, General Prescriptions: No Action loperamide 2 mg capsule 2 mg PO DAILY Patient Comments: TAKE 1 CAPSULE BY MOUTH FOUR TIMES DAILY NEEDED Primary Care Provider: Andrew Schafer Referrals: Andrew Schafer MD [Primary Care Provider] - Activity Restrictions/Additional Instructions: Keep your right arm elevated when possible. Follow-up with orthopedics as scheduled next week. Disposition Disposition: Home, Self Care
== END 2023-07-03 07:47 | disposition home or self-care (01) ==
LOC: ED 07:41
PROVIDERS: Emergency Provider Emergency Medicine; PCP Family Medicine; Visit Provider Emergency Medicine
DX: R60.0 Localized edema (principal); S52.91XD Unspecified fracture of right forearm, subsequent encounter for closed fracture with routine healing; X58.XXXD Exposure to other specified factors, subsequent encounter
CPT/HCPCS: 99282

== ENCOUNTER 2024-01-08 15:18 | Emergency (ER) | payer MEDICARE, SELFPAY ==
[2024-01-08 15:19] VITALS: BP 158/78; PULSE 79; RESP 18; TEMP 36.4; O2SAT 95; BMI 28.3
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
[2024-01-08] MEDS: HYDROcodone Bitartrate/Apap 5/325 Tablet PO (15:38)
[2024-01-08 17:30] VITALS: BP 161/76; PULSE 72; RESP 16; TEMP 36.1; O2SAT 98
== END 2024-01-08 17:30 | disposition home or self-care (01) ==
PROVIDERS: Emergency Provider Emergency Medicine; PCP Family Medicine; Visit Provider Emergency Medicine
DX: S32.019A Unspecified fracture of first lumbar vertebra, initial encounter for closed fracture (principal); W50.0XXA Accidental hit or strike by another person, initial encounter; Y93.89 Activity, other specified; Y92.838 Other recreation area as the place of occurrence of the external cause; Z79.899 Other long term (current) drug therapy
CPT/HCPCS: 70450; 72131; 99282

== ENCOUNTER → 2024-02-09 | Outpatient (CLI) | payer MEDICARE, SELFPAY ==
--- NOTE | 2024-02-09 07:30 | BONBX_PTH ---
PATIENT: JENI ZAZUETA LOC: [facility] U#:[id number] AGE/SX: 83/M ROOM: RE02/09/[address]: Dr. Andrew Braun DO : 1940 BED: DIS: 02/09/2024 SPEC #: [id number] RECD: 02/10/24 12:08 STATUS: [facility] #: [id number] MELYSSA: 02/09/24 07:[address]: Andrew Braun DEPT: SURGICAL PATHOLOGY RECD BY: Lamine Bernard ENTERED: 02/10/24 12:10 SP TYPE: Bone OTHR DR: Dr. Andrew Schafer MD [facility] Tissues: Vertebra, NOS Procedures: Decalcification bone/plaque Surgery Specimen Level V HEADER OPERATION: Lumbar 1 kyphoplasty PRE-OP DIAGNOSIS: Wedge compression fracture of first lumbar vertebra TISSUE SUBMITTED: L1 vertebral body bone MICROSCOPIC DIAGNOSIS L1 vertebral body, fracture, bone biopsy: Reactive and reparative change consistent with fracture site. / 02/11/2024 MICROSCOPIC DESCRIPTION Slides are reviewed. GROSS DESCRIPTION Received in fixative is one container labeled with the patient's name and designated L1 vertebral body bone. The specimen consists of a fragment of juan bone measuring 1.5cm in length and 0..2cm in diameter. The specimen is submitted in its entirety in one cassette after decalcification. / 02/10/24 TC:5 CPT: 50842,66058
== END | disposition home or self-care (01) ==
LOC: LABSPEC 16:31
PROVIDERS: PCP Family Medicine; Referring Provider Orthopaedic Surgery; Visit Provider Orthopaedic Surgery
DX: S32.010A Wedge compression fracture of first lumbar vertebra, initial encounter for closed fracture (principal); X58.XXXA Exposure to other specified factors, initial encounter
CPT/HCPCS: 88307; 88311

== ENCOUNTER 2024-07-26 06:49 | Observation (INO) | payer MEDICARE, SELFPAY ==
[2024-07-26] VITALS (20 sets, daily range): BP systolic 119–160; BP diastolic 49–78; PULSE 72–126; RESP 12–18; TEMP 36.4–38.1; O2SAT 92–100; BMI 25.8
--- NOTE | 2024-07-26 07:11 | EKG12_ITS ---
Test Reason : Blood Pressure : */* mmHG Vent. Rate : 84 BPM Atrial Rate : 84 BPM P-R Int : 194 ms QRS Dur : 68 ms QT Int : 372 ms P-R-T Axes : 23 -3 -5 degrees QTcB Int : 439 ms Sinus rhythm with Premature supraventricular complexes and with frequent Premature ventricular comple xes Nonspecific ST abnormality Abnormal ECG Confirmed by ELISE MOSHER, VIPUL ([id number]), staff editor ANAHY LERMA ([id number]) on 07/27/2024 6:00:11 AM Referred By: Confirmed By: VIPUL OLIVARES MD
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
[2024-07-26] MEDS: Diphth,Pertuss(Acell),Tet Vac 0.5 ML Vial IM (07:24)
[2024-07-26] MEDS: Lidocaine 1% (20 ml mdv) 20 ML Vial INFILT (07:24)
[2024-07-26 07:41] LABS: Absolute Lymphocyte Count 1.61 X10^3/uL (0.83-4.51); Absolute Neutrophil Count 3.3 X10^3/uL (2.0-7.7); Basophil# 0.05 X10^3/uL; Basophil% 0.9 % (0-1); Eosinophil# 0.09 X10^3/uL; Eosinophils% 1.6 % (0-5); Hematocrit 42.8 % (40-54); Lymphocyte # 1.61 X10^3/ul (0.83-4.51); Mean Corp Hgb Conc 32.7 g/dL (32-36); Mean Corpuscular Hgb 30.5 pg (27.0-32.0); Mean Corpuscular Volume 93.2 fL (80-94); Mean Platelet Vol. 9.7 fl (6.2-12.0); Monocyte# 0.51 X10^3/uL; Monocyte% 9.2 % (0-10); NRBC Flagged by Analyzer 0 % (0-5); Neutrophil # 3.27 X10^3/uL (2.7-7.7); Neutrophil % 58.8 % (47-70); Platelet Count 189 K/mm3 (150-450); RBC Distribution Width CV 12.8 % (11.6-14.6); RBC Distribution Width SD 43.8 fl (35.1-43.9); Red Blood Count 4.59 M/mm3 (4.6-6.2); White Blood Count 5.6 K/mm3 (4.4-11.0)
[2024-07-26 07:57] LABS: AST(SGOT) 18 U/L (15-37); Alanine Aminotransfer ALT/SGPT 18 U/L (16-61); Albumin, Serum 3.3 g/dL (3.2-5.0); Alkaline Phosphatase 87 U/L (45-117); Anion Gap 5 (5-15); BUN 9 mg/dL (7-18); BUN/Creat Ratio 9.1 RATIO (10-20); Calcium,Total 8.7 mg/dL (8.5-10.1); Chloride 103 mmol/L (98-107); Creatinine, Serum 0.99 mg/dL (0.70-1.30); EST Glomerular Filtration Rate 76 mL/min (>60); Est Glom Filt Rate - Afr Amer 92 mL/min (>60); Globulin 3.3 g/dL (2.2-4.2); Glucose 123 mg/dL (74-106); Potassium 4.4 mmol/L (3.5-5.1); Protein, Total 6.6 g/dL (6.4-8.2); Sodium Level 136 mmol/L (136-145)
[2024-07-26 08:00] LABS: Alcohol, Blood (Medical)-Serum < 3.0 mg/dL
[2024-07-26 08:20] LABS: Bacteria 0 SEEN /hpf (None Seen); Mucous, Urine 0 SEEN /hpf (<or=2+); Red Blood Cells-Urine 0 SEEN /hpf (0-5); Squamous Epithelial Cells - UA 0 SEEN /hpf (0-5); White Blood Cells 0 SEEN /hpf (0-5)
[2024-07-26 08:23] LABS: Color, Urine Yellow (Yellow); Glucose, Dipstick Normal (Normal); Ketone-Dipstick Negative (Negative); Leukocyte Esterase-Dipstick Negative /ul (Negative); Nitrite-Dipstick Negative (Negative); Occult Blood-Urine Negative /ul (Negative); Protein-Dipstick 15 mg/dl (Negative); Specific Gravity, Urine 1.005 (1.002-1.030); Urine Bilirubin Dipstick Negative (Negative); Urine Clarity Clear (Clear); Urine Urobilinogen Normal (Normal)
[2024-07-26 08:31] LABS: International Normalized Ratio 1.1
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
--- NOTE | 2024-07-26 11:49 | PRE.ANES_ITS ---
ASA Classification* ASA Classification ASA Classification: 2 and E Assessment & Plan Anesthesia* Anesthesia Assessment Anesthesia Assessment: Discussed sedation and/or anesthesia options, risks, benefits, and alternatives with patient/parents/legal guardian/POA. Questions invited. The patient/parents/legal guardian/POA seems to understand and agrees to proceed with anesthesia plan. Reviewed the physical assessment, medical history, allergy history and patient home medications list prior to surgery/procedure/anesthetic and documented any changes. Performed airway and anesthesia risk assessments. Anesthesia Type Anesthesia Type: General (SEE WRITTEN PRE ANESTHESIA RECORD FOR FULL ASSESSMENT) Anesthesia Focused Assessment* Temperature: 97.8 F Pulse Rate: 98 Blood Pressure: 130/76 Respiratory Rate: 16 Pulse Ox: 98 Airway Assessment Mouth opens: >3 cm Mallampati Score: II Focused Labs Anesthesia Preop lab: CBC WBC 5.6 K/mm3 (4.4-11.0) 07/26/24 07:35 RBC 4.59 M/mm3 (4.6-6.2) L 07/26/24 07:35 Hgb 14.0 g/dL (13.0-16.5) 07/26/24 07:35 Hct 42.8 % (40-54) 07/26/24 07:35 Plt Count 189 K/mm3 (150-450) 07/26/24 07:35 CHEMISTRY Potassium 4.4 mmol/L (3.5-5.1) 07/26/24 07:35 Sodium 136 mmol/L (136-145) 07/26/24 07:35 BUN 9 mg/dL (7-18) 07/26/24 07:35 Creatinine 0.99 mg/dL (0.70-1.30) 07/26/24 07:35 Glucose 123 mg/dL (74-106) H 07/26/24 07:35 COAG PT 14.0 SECONDS (11.7-14.9) 07/26/24 07:35 Pre-Assessment Diagnosis/Proposed Procedure Planned Operative Procedure(s): eXP OF OPEN rue WOUND Anesthesia History Anesthesia 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 When Was Last Pacemaker Check QUESTION #4 FULL TEXT: You/Your Family Experience fever (hyperthermia) with Anesthesia Last Oral Intake Last Oral intake: Last Oral Intake NPO since 06:45 07/26/24 11:15 Meds taken in AM with sips of water? Meds patient instructed to take am of surgery PONV PONV - heat treat worker: PONV - heat treat worker Female HX of Motion Sickness HX of N/V After Surgery Non-Smoker Duration of Surgery greater than 60 minutes Number of Risk Factors PONV Score Height & Weight Height & Weight: Anesthesia: Height & Weight Height 5 ft 10 in 07/26/24 11:15 Weight: 81.647 kg 07/26/24 11:15 Body Mass Index (BMI) 25.8 07/26/24 11:15 Respiratory Assessment Respiratory Assessment - heat treat worker: Respiratory Tract Infection Hx - heat treat worker Hx Respiratory Tract Infection No 07/26/24 11:15 STOP Sleep Apnea STOP Sleep Apnea - heat treat worker: STOP Sleep Apnea - heat treat worker Hx Hypertension No 07/26/24 11:15 Hx Sleep Apnea No 07/26/24 11:15 CPAP BIPAP Do you snore loudly (louder No 07/26/24 11:15 than talking or can be heard Do you often feel tired/ No 07/26/24 11:15 fatigued/ sleepy during daytime? Has anyone observed you stop No 07/26/24 11:15 breathing during sleep? STOP Results Negative 07/26/24 11:15 QUESTION #5 FULL TEXT : Do you snore loudly (louder than talking or can be heard through closed doors)? 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 Specify any problems Hx of Preganancy in last 3 Months Nurse Filling Out Transfusion & Questions: Date: Time: Patient unable to answer at this time (ie. confused, unrespo /Reproduction History /Reproductive History - heat treat worker: /Reproductive Hx- heat treat worker Hx Now No 07/26/24 11:15 Gestational Age (in weeks): EDC: Hx Hx Para Hx Section SAB PFSH Medical History Lower GI bleeding Diarrhea Gout Home Medications ?Medication ?Instructions ?Recorded ?Last Taken ?Type loperamide 2 mg capsule 2 mg PO DAILY 07/04/22 Unknown History hydrocodone-acetaminophen 5-325mg 1 tab PO Q6H PRN PRN Pain 3 days 01/08/24 Unknown Rx 5mg-325mg #10 TABLETS Allergy/AdvReac Type Severity Reaction Status Date / Time Sulfa (Sulfonamide Allergy NEEDS Verified 07/26/24 06:50 Antibiotics) FOLLOW-UP Social History Smoking Status: Never smoker Review of Systems (Anesthesia) ROS Narrative System reviewed and no additional complaints, except as documented.
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
[2024-07-26] MEDS: Cefazolin 2 GM in Syringe IV (12:20)
[2024-07-26] MEDS: Gentamicin 80 MG/2 ML Vial (12:47)
[2024-07-26] MEDS: Bacitracin 500 UNITS/GM PACKET (14:00)
--- NOTE | 2024-07-26 14:24 | PCM.POST.ANE ---
Anesthesia: Postop Eval I Current Vital Signs Temperature: 97.5 F Pulse Rate: 122 Blood Pressure: 158/67 Respiratory Rate: 16 Pulse Ox: 98 Oxygen Delivery Method: Nasal Cannula Oxygen Flow Rate (L/min): 2 Assessment Airway patent: Yes Spontaneous unlabored respirations: Yes Mental status: Awake and Calm nausea: No Vomiting: No Anesthesia Complication: No Fluid Hydration Crystalloid volume administer (ml): 1,500 Total IV fluid infused: 1,500 Progress Note Anesthesia document: Postop Eval 1 completed: Yes
--- NOTE | 2024-07-26 14:30 | EKG12_ITS ---
Test Reason : tachycardia Blood Pressure : */* mmHG Vent. Rate : 129 BPM Atrial Rate : * BPM P-R Int : * ms QRS Dur : 70 ms QT Int : 326 ms P-R-T Axes : * 26 -22 degrees QTcB Int : 477 ms Accelerated Junctional rhythm Nonspecific ST and T wave abnormality Abnormal ECG When compared with ECG of 26-Jul-2024 07:17, MANUAL COMPARISON REQUIRED DATA IS UNCONFIRMED Confirmed by ELISE MOSHER, VIPUL ([id number]), editor school photograph NATHANIEL RESENDEZ ([id number]) on 07/29/2024 11:13:46 AM Referred By: Coreen Confirmed By: VIPUL OLIVARES MD
--- NOTE | 2024-07-26 15:06 | POSTOPAN2_ITS ---
Anesthesia Postop Eval I Sum Postop Eval Completion status Anesthesia document: Postop Eval 1 completed: Yes Anesthesia Postop Eval I Summary Anesthesia Postop Eval I Summary: Anesthesia Postop Eval I: Assessment Summary Airway patent Yes 07/26/24 14:31 [email or web address] Spontaneous unlabored Yes 07/26/24 14:31 [email or web address] respirations Mental status Awake,Calm 07/26/24 14:31 [email or web address] nausea No 07/26/24 14:31 [email or web address] [email or web address] Vomiting No 07/26/24 14:31 [email or web address] Anesthesia Postop Eval I: Fluid Summary Crystalloid volume administer 1,500 07/26/24 14:31 [email or web address] (ml) Colloids volume administered ( ml) Blood Product volume administered (ml) Total IV fluid infused 1,500 07/26/24 14:31 [email or web address] Anesthesia Postop Eval I: Summary Notes Anesthesia Complication No 07/26/24 14:31 [email or web address] Anesthesia Complication Comment: Post-operative progress note Anesthesia: Postop Eval II Evaluation Mental status: Awake Pain Level: 0 nausea: No Vomiting: No
--- NOTE | 2024-07-26 15:06 | PCM.POSTANE2 ---
Anesthesia Postop Eval I Sum Postop Eval Completion status Anesthesia document: Postop Eval 1 completed: Yes Anesthesia Postop Eval I Summary Anesthesia Postop Eval I Summary: Anesthesia Postop Eval I: Assessment Summary Airway patent Yes 07/26/24 14:31 AUTOMOTIVE [email or web address] Spontaneous unlabored Yes 07/26/24 14:31 AUTOMOTIVE [email or web address] respirations Mental status Awake,Calm 07/26/24 14:31 AUTOMOTIVE [email or web address] nausea No 07/26/24 14:31 AUTOMOTIVE CONSULTANT.GDOTT Vomiting No 07/26/24 14:31 AUTOMOTIVE [email or web address].[email or web address] Anesthesia Postop Eval I: Fluid Summary Crystalloid volume administer 1,500 07/26/24 14:31 AUTOMOTIVE [email or web address] (ml) Colloids volume administered ( ml) Blood Product volume administered (ml) Total IV fluid infused 1,500 07/26/24 14:31 AUTOMOTIVE [email or web address] Anesthesia Postop Eval I: Summary Notes Anesthesia Complication No 07/26/24 14:31 AUTOMOTIVE [email or web address] Anesthesia Complication Comment: Post-operative progress note Anesthesia: Postop Eval II Evaluation Mental status: Awake Pain Level: 0 nausea: No Vomiting: No
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
[2024-07-26] MEDS: Cefazolin 1 GM/50 ML BAG IV (23:16)
[2024-07-26] MEDS: Heparin Injection (Vial) 5,000 UNIT/ML VIAL 5000 UNIT SC (23:17)
[2024-07-27] VITALS (7 sets, daily range): BP systolic 104–170; BP diastolic 40–70; PULSE 76–101; RESP 16–18; TEMP 36.7–37.3; O2SAT 86–97
[2024-07-27] MEDS: oxyCODONE 5 MG Tablet 10 MG PO (02:39)
[2024-07-27] MEDS: Cefazolin 1 GM/50 ML BAG IV ×3 (05:23→20:17)
[2024-07-27] MEDS: Acetaminophen 500 MG Tablet 1000 MG PO ×3 (06:04→20:17)
[2024-07-27] MEDS: Heparin Injection (Vial) 5,000 UNIT/ML VIAL 5000 UNIT SC ×2 (08:54→20:17)
[2024-07-27] MEDS: Ensure Plus High Protein 120 ML LIQUID PO (08:54)
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
--- NOTE | 2024-07-27 09:59 | NURSING ---
spoke with lab re:need for H&H to be drawn roselyn
[2024-07-27 10:08] LABS: Hematocrit 35.7 % (40-54); Hemoglobin 11.7 g/dL (13.0-16.5)
--- NOTE | 2024-07-27 10:37 | CASEMGMT ---
Discharge Planning A list of SNF providers including quality and resource use data and consistent with the patient's preferred geographic region, medical needs, and insurance network was created in [employer] Guide.? This list was provided to the SW. Ava Jewell Discharge Planning Asst.
--- NOTE | 2024-07-27 12:38 | CASEMGMT ---
Spoke with patients step-daughter (Kathy) to complete GHOTRA form. GHOTRA form explained to Kathy who voiced understanding. Original form placed in pt?s chart and in his room. Ava Jewell, Discharge Planning Asst
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
--- NOTE | 2024-07-27 13:53 | CASEMGMT ---
Discharge Planning Referral sent via [facility] to [facility]. Ava Jewell DC Planning Asst.
--- NOTE | 2024-07-27 15:26 | CASEMGMT ---
Social Work- SW coordinated and collaborated with RNCM for referrals for SNF for pt. DCA advised of request for [facility] and [facility] for secondary. ILAN Meza
--- NOTE | 2024-07-27 16:54 | CASEMGMT ---
Social Work- [facility] accepted referral and submitted for precert. PASSR completed. ILAN Meza
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
[2024-07-28 02:44] VITALS: BP 134/64; PULSE 93; RESP 16; TEMP 36.8; O2SAT 93
[2024-07-28] MEDS: Cefazolin 1 GM/50 ML BAG IV (06:46)
[2024-07-28] MEDS: Acetaminophen 500 MG Tablet 1000 MG PO (06:47)
[2024-07-28 08:35] VITALS: BP 148/78; PULSE 85; RESP 16; TEMP 36.9; O2SAT 94
[2024-07-28] MEDS: Ensure Plus High Protein 120 ML LIQUID PO (08:51)
--- NOTE | 2024-07-28 09:05 | CASEMGMT ---
Discharge Planning [facility] has obtained auth to admit. SW updated. Ava Jewell DC Planning Asst.
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
[2024-07-28] MEDS: Heparin Injection (Vial) 5,000 UNIT/ML VIAL 5000 UNIT SC (10:00)
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
--- NOTE | 2024-07-28 11:47 | CASEMGMT ---
Social Work Precert has been obtained.? Physician updated and pt is ready for discharge today.? PASRR form completed in [facility]. DCA and bedside nurse notified of discharge. SW called pt mekar Kathy and left a voicemail that precert has been obtained and pt will d/c. Disposition:[facility], skilled level of care under convalescent stay. ILAN Meza
--- NOTE | 2024-07-28 12:29 | CASEMGMT ---
Discharge Planning Discharge orders, signed med list, and transport time sent via [facility] to [facility]. Physicians will transport patient by cot at 1p. Nursing, SW, patient, and pts step-daughter (Kathy) updated. Ava Jewell DC Planning Asst.
== END 2024-07-28 13:32 | disposition skilled nursing facility (03) ==
LOC: ED 10:40 → SDC 10:52 → ACINP 10:53 → SDC 15:21 → MS3 15:21
PROVIDERS: Admitting Provider Internal Medicine; Emergency Provider Emergency Medicine; PCP Family Medicine; Visit Provider Plastic Surgery
PROC: (CPT 13121; principal; 2024-07-26 11:15)
DX: S01.01XA Laceration without foreign body of scalp, initial encounter (principal); S50.811A Abrasion of right forearm, initial encounter; S62.336A Displaced fracture of neck of fifth metacarpal bone, right hand, initial encounter for closed fracture; Y92.410 Unspecified street and highway as the place of occurrence of the external cause; R40.4 Transient alteration of awareness; S81.812A Laceration without foreign body, left lower leg, initial encounter; S81.811A Laceration without foreign body, right lower leg, initial encounter; S91.012A Laceration without foreign body, left ankle, initial encounter; V49.40XA Driver injured in collision with unspecified motor vehicles in traffic accident, initial encounter; S51.819A Laceration without foreign body of unspecified forearm, initial encounter; S91.011A Laceration without foreign body, right ankle, initial encounter; Z23 Encounter for immunization; R25.1 Tremor, unspecified; R94.31 Abnormal electrocardiogram [ECG] [EKG]; I47.19 Other supraventricular tachycardia
CPT/HCPCS: 13121; 26600; 13122; 12002; 36415; 70450; 71046; 72125; 73090; 73130; 74177; 80053; 81001; 82077; 85014; 85018; 85025; 85610; 90471; 90715; 93005; 96365; 96366; 96372; 97116; 97162; 97166; 97535; 99221; 99285; Q9967; A4216; G0378; J2405

== ENCOUNTER → 2024-08-11 | Outpatient (REF) | payer MEDICARE, SELFPAY ==
[2024-08-11 07:55] LABS: Absolute Lymphocyte Count 1.21 X10^3/uL (0.83-4.51); Absolute Neutrophil Count 1.8 X10^3/uL (2.0-7.7); Basophil# 0.06 X10^3/uL; Basophil% 1.6 % (0-1); Eosinophil# 0.14 X10^3/uL; Eosinophils% 3.8 % (0-5); Hematocrit 36.4 % (40-54); Lymphocyte # 1.21 X10^3/ul (0.83-4.51); Lymphocyte % 32.7 % (19-41); Mean Corpuscular Hgb 30.7 pg (27.0-32.0); Mean Corpuscular Volume 93.1 fL (80-94); Mean Platelet Vol. 10.4 fl (6.2-12.0); Monocyte# 0.45 X10^3/uL; Monocyte% 12.2 % (0-10); NRBC Flagged by Analyzer 0 % (0-5); Neutrophil # 1.83 X10^3/uL (2.7-7.7); Neutrophil % 49.4 % (47-70); Platelet Count 252 K/mm3 (150-450); RBC Distribution Width CV 13.2 % (11.6-14.6); RBC Distribution Width SD 45.1 fl (35.1-43.9); Red Blood Count 3.91 M/mm3 (4.6-6.2); White Blood Count 3.7 K/mm3 (4.4-11.0)
[2024-08-11 08:02] LABS: Anion Gap 3 (5-15); BUN 10 mg/dL (7-18); BUN/Creat Ratio 13.5 RATIO (10-20); Calcium,Total 8.2 mg/dL (8.5-10.1); Chloride 108 mmol/L (98-107); Creatinine, Serum 0.74 mg/dL (0.70-1.30); EST Glomerular Filtration Rate 107 mL/min (>60); Est Glom Filt Rate - Afr Amer 129 mL/min (>60); Glucose 81 mg/dL (74-106); Potassium 4.1 mmol/L (3.5-5.1); Sodium Level 136 mmol/L (136-145)
== END ==
LOC: OLS.WHLTCC 05:00
PROVIDERS: PCP Family Medicine; Visit Provider Internal Medicine
DX: M10.9 Gout, unspecified (principal)
CPT/HCPCS: 36415; 80048; 85025

== ENCOUNTER → 2024-08-19 | Outpatient (REF) | payer MEDICARE, SELFPAY ==
[2024-08-19 08:02] LABS: Absolute Neutrophil Count 2.4 X10^3/uL (2.0-7.7); Basophil# 0.04 X10^3/uL; Basophil% 0.9 % (0-1); Eosinophil# 0.17 X10^3/uL; Eosinophils% 3.7 % (0-5); Hematocrit 39.6 % (40-54); Hemoglobin 12.5 g/dL (13.0-16.5); Lymphocyte % 34.7 % (19-41); Mean Corp Hgb Conc 31.6 g/dL (32-36); Mean Corpuscular Hgb 29.3 pg (27.0-32.0); Mean Platelet Vol. 9.9 fl (6.2-12.0); Monocyte# 0.39 X10^3/uL; Monocyte% 8.5 % (0-10); NRBC Flagged by Analyzer 0 % (0-5); Platelet Count 218 K/mm3 (150-450); RBC Distribution Width CV 13.2 % (11.6-14.6); RBC Distribution Width SD 45.1 fl (35.1-43.9); Red Blood Count 4.26 M/mm3 (4.6-6.2); White Blood Count 4.6 K/mm3 (4.4-11.0)
[2024-08-19 08:15] LABS: Anion Gap 6 (5-15); BUN 8 mg/dL (7-18); BUN/Creat Ratio 9.6 RATIO (10-20); Calcium,Total 8.5 mg/dL (8.5-10.1); Chloride 108 mmol/L (98-107); Creatinine, Serum 0.83 mg/dL (0.70-1.30); EST Glomerular Filtration Rate 93 mL/min (>60); Est Glom Filt Rate - Afr Amer 113 mL/min (>60); Glucose 123 mg/dL (74-106); Potassium 3.3 mmol/L (3.5-5.1); Sodium Level 140 mmol/L (136-145)
== END ==
LOC: OLS.WHLTCC 05:00
PROVIDERS: PCP Family Medicine; Visit Provider Internal Medicine
DX: M10.9 Gout, unspecified (principal)
CPT/HCPCS: 36415; 80048; 85025

== ENCOUNTER → 2024-08-23 | Outpatient (REF) | payer MEDICARE, SELFPAY ==
[2024-08-23 08:49] LABS: Potassium 3.9 mmol/L (3.5-5.1)
== END ==
LOC: OLS.WHLTCC 05:00
PROVIDERS: PCP Family Medicine; Visit Provider Internal Medicine
DX: R48.8 Other symbolic dysfunctions (principal)
CPT/HCPCS: 36415; 84132

== ENCOUNTER → 2024-08-26 | Outpatient (REF) | payer MEDICARE, SELFPAY ==
[2024-08-26 09:06] LABS: Absolute Lymphocyte Count 1.42 X10^3/uL (0.83-4.51); Absolute Neutrophil Count 1.5 X10^3/uL (2.0-7.7); Basophil# 0.04 X10^3/uL; Basophil% 1.1 % (0-1); Eosinophil# 0.21 X10^3/uL; Eosinophils% 5.8 % (0-5); Hematocrit 37.5 % (40-54); Lymphocyte # 1.42 X10^3/ul (0.83-4.51); Mean Corpuscular Hgb 29.9 pg (27.0-32.0); Mean Corpuscular Volume 93.3 fL (80-94); Mean Platelet Vol. 10.6 fl (6.2-12.0); Monocyte# 0.47 X10^3/uL; Monocyte% 12.9 % (0-10); NRBC Flagged by Analyzer 0 % (0-5); Neutrophil # 1.49 X10^3/uL (2.7-7.7); Neutrophil % 40.9 % (47-70); Platelet Count 154 K/mm3 (150-450); RBC Distribution Width CV 13.2 % (11.6-14.6); RBC Distribution Width SD 45.2 fl (35.1-43.9); Red Blood Count 4.02 M/mm3 (4.6-6.2); White Blood Count 3.6 K/mm3 (4.4-11.0)
[2024-08-26 09:49] LABS: Anion Gap 4 (5-15); BUN 15 mg/dL (7-18); BUN/Creat Ratio 16.1 RATIO (10-20); Calcium,Total 8.1 mg/dL (8.5-10.1); Chloride 109 mmol/L (98-107); Creatinine, Serum 0.93 mg/dL (0.70-1.30); EST Glomerular Filtration Rate 82 mL/min (>60); Est Glom Filt Rate - Afr Amer 99 mL/min (>60); Glucose 87 mg/dL (74-106); Potassium 3.7 mmol/L (3.5-5.1); Sodium Level 139 mmol/L (136-145)
== END ==
LOC: OLS.WHLTCC 05:00
PROVIDERS: PCP Family Medicine; Visit Provider Internal Medicine
DX: M10.9 Gout, unspecified (principal)
CPT/HCPCS: 36415; 80048; 85025

== ENCOUNTER → 2024-09-01 | Outpatient (REF) | payer MEDICARE, SELFPAY ==
[2024-09-01 08:14] LABS: Absolute Lymphocyte Count 1.98 X10^3/uL (0.83-4.51); Absolute Neutrophil Count 2.6 X10^3/uL (2.0-7.7); Basophil# 0.03 X10^3/uL; Basophil% 0.6 % (0-1); Eosinophil# 0.16 X10^3/uL; Hematocrit 39.2 % (40-54); Hemoglobin 12.5 g/dL (13.0-16.5); Lymphocyte # 1.98 X10^3/ul (0.83-4.51); Lymphocyte % 37.4 % (19-41); Mean Corp Hgb Conc 31.9 g/dL (32-36); Mean Corpuscular Hgb 29.4 pg (27.0-32.0); Mean Corpuscular Volume 92.2 fL (80-94); Mean Platelet Vol. 9.9 fl (6.2-12.0); Monocyte# 0.53 X10^3/uL; NRBC Flagged by Analyzer 0 % (0-5); Neutrophil # 2.57 X10^3/uL (2.7-7.7); Neutrophil % 48.6 % (47-70); Platelet Count 186 K/mm3 (150-450); RBC Distribution Width CV 13.3 % (11.6-14.6); RBC Distribution Width SD 45.1 fl (35.1-43.9); Red Blood Count 4.25 M/mm3 (4.6-6.2); White Blood Count 5.3 K/mm3 (4.4-11.0)
[2024-09-01 08:45] LABS: ALB/GLOB Ratio 0.9 RATIO (0.9-2.4); AST(SGOT) 20 U/L (15-37); Alanine Aminotransfer ALT/SGPT 15 U/L (16-61); Albumin, Serum 3.2 g/dL (3.2-5.0); Alkaline Phosphatase 94 U/L (45-117); Anion Gap 6 (5-15); BUN 7 mg/dL (7-18); BUN/Creat Ratio 7.8 RATIO (10-20); Calcium,Total 8.9 mg/dL (8.5-10.1); Chloride 106 mmol/L (98-107); Creatinine, Serum 0.89 mg/dL (0.70-1.30); EST Glomerular Filtration Rate 86 mL/min (>60); Est Glom Filt Rate - Afr Amer 104 mL/min (>60); Globulin 3.6 g/dL (2.2-4.2); Glucose 93 mg/dL (74-106); Potassium 3.9 mmol/L (3.5-5.1); Protein, Total 6.8 g/dL (6.4-8.2); Sodium Level 137 mmol/L (136-145)
== END ==
LOC: OLS.WHLTCC 05:00
PROVIDERS: PCP Family Medicine; Visit Provider Internal Medicine
DX: R19.7 Diarrhea, unspecified (principal); D64.9 Anemia, unspecified
CPT/HCPCS: 36415; 80053; 85025; 87493

== ENCOUNTER → 2024-09-08 | Outpatient (REF) | payer MEDICARE, SELFPAY ==
[2024-09-08 08:20] LABS: Absolute Lymphocyte Count 1.99 X10^3/uL (0.83-4.51); Absolute Neutrophil Count 2.7 X10^3/uL (2.0-7.7); Basophil# 0.04 X10^3/uL; Basophil% 0.7 % (0-1); Eosinophil# 0.15 X10^3/uL; Eosinophils% 2.8 % (0-5); Hematocrit 40.5 % (40-54); Hemoglobin 13.1 g/dL (13.0-16.5); Lymphocyte # 1.99 X10^3/ul (0.83-4.51); Lymphocyte % 37.1 % (19-41); Mean Corp Hgb Conc 32.3 g/dL (32-36); Mean Corpuscular Hgb 29.4 pg (27.0-32.0); Mean Corpuscular Volume 90.8 fL (80-94); Mean Platelet Vol. 10.1 fl (6.2-12.0); Monocyte# 0.53 X10^3/uL; Monocyte% 9.9 % (0-10); NRBC Flagged by Analyzer 0 % (0-5); Neutrophil # 2.65 X10^3/uL (2.7-7.7); Neutrophil % 49.3 % (47-70); Platelet Count 235 K/mm3 (150-450); RBC Distribution Width CV 13.3 % (11.6-14.6); RBC Distribution Width SD 44.8 fl (35.1-43.9); Red Blood Count 4.46 M/mm3 (4.6-6.2); White Blood Count 5.4 K/mm3 (4.4-11.0)
[2024-09-08 08:34] LABS: Anion Gap 7 (5-15); BUN 10 mg/dL (7-18); BUN/Creat Ratio 10.9 RATIO (10-20); Calcium,Total 9.2 mg/dL (8.5-10.1); Chloride 106 mmol/L (98-107); Creatinine, Serum 0.92 mg/dL (0.70-1.30); EST Glomerular Filtration Rate 83 mL/min (>60); Est Glom Filt Rate - Afr Amer 101 mL/min (>60); Glucose 90 mg/dL (74-106); Potassium 3.6 mmol/L (3.5-5.1); Sodium Level 138 mmol/L (136-145)
== END ==
LOC: OLS.WHLTCC 05:00
PROVIDERS: PCP Family Medicine; Visit Provider Internal Medicine
DX: M10.9 Gout, unspecified (principal)
CPT/HCPCS: 36415; 80048; 85025

== ENCOUNTER → 2024-09-16 04:00 | Outpatient (REF) | payer MEDICARE, SELFPAY ==
[2024-09-16 08:13] LABS: Absolute Neutrophil Count 1.9 X10^3/uL (2.0-7.7); Basophil# 0.05 X10^3/uL; Basophil% 1.2 % (0-1); Eosinophil# 0.14 X10^3/uL; Eosinophils% 3.4 % (0-5); Hematocrit 42.1 % (40-54); Hemoglobin 13.4 g/dL (13.0-16.5); Lymphocyte % 38.8 % (19-41); Mean Corp Hgb Conc 31.8 g/dL (32-36); Mean Corpuscular Hgb 29.3 pg (27.0-32.0); Mean Corpuscular Volume 92.1 fL (80-94); Mean Platelet Vol. 10.2 fl (6.2-12.0); Monocyte% 9.7 % (0-10); NRBC Flagged by Analyzer 0 % (0-5); Neutrophil # 1.92 X10^3/uL (2.7-7.7); Neutrophil % 46.7 % (47-70); Platelet Count 199 K/mm3 (150-450); RBC Distribution Width CV 13.5 % (11.6-14.6); RBC Distribution Width SD 46.2 fl (35.1-43.9); Red Blood Count 4.57 M/mm3 (4.6-6.2); White Blood Count 4.1 K/mm3 (4.4-11.0)
[2024-09-16 08:35] LABS: Anion Gap 6 (5-15); BUN 8 mg/dL (7-18); BUN/Creat Ratio 9.4 RATIO (10-20); Calcium,Total 8.7 mg/dL (8.5-10.1); Chloride 106 mmol/L (98-107); Creatinine, Serum 0.85 mg/dL (0.70-1.30); EST Glomerular Filtration Rate 91 mL/min (>60); Est Glom Filt Rate - Afr Amer 110 mL/min (>60); Glucose 74 mg/dL (74-106); Potassium 3.9 mmol/L (3.5-5.1); Sodium Level 139 mmol/L (136-145)
== END ==
LOC: OLS.WHLTSB 04:00
PROVIDERS: PCP Family Medicine; Referring Provider Family Medicine; Visit Provider Family Medicine
DX: D64.9 Anemia, unspecified (principal)
CPT/HCPCS: 36415; 80048; 85025

== ENCOUNTER → 2024-09-22 05:00 | Outpatient (REF) | payer MEDICARE, SELFPAY ==
[2024-09-22 07:04] LABS: Absolute Lymphocyte Count 1.43 X10^3/uL (0.83-4.51); Absolute Neutrophil Count 1.5 X10^3/uL (2.0-7.7); Basophil# 0.04 X10^3/uL; Basophil% 1.1 % (0-1); Eosinophil# 0.11 X10^3/uL; Eosinophils% 3.2 % (0-5); Hematocrit 38.3 % (40-54); Hemoglobin 12.2 g/dL (13.0-16.5); Lymphocyte # 1.43 X10^3/ul (0.83-4.51); Mean Corp Hgb Conc 31.9 g/dL (32-36); Mean Corpuscular Volume 91.2 fL (80-94); Monocyte# 0.45 X10^3/uL; Monocyte% 12.9 % (0-10); NRBC Flagged by Analyzer 0 % (0-5); Neutrophil # 1.45 X10^3/uL (2.7-7.7); Neutrophil % 41.5 % (47-70); Platelet Count 169 K/mm3 (150-450); RBC Distribution Width CV 13.6 % (11.6-14.6); RBC Distribution Width SD 45.8 fl (35.1-43.9); White Blood Count 3.5 K/mm3 (4.4-11.0)
[2024-09-22 07:11] LABS: Anion Gap 4 (5-15); BUN 14 mg/dL (7-18); BUN/Creat Ratio 19.2 RATIO (10-20); Calcium,Total 8.6 mg/dL (8.5-10.1); Chloride 105 mmol/L (98-107); Creatinine, Serum 0.73 mg/dL (0.70-1.30); EST Glomerular Filtration Rate 108 mL/min (>60); Est Glom Filt Rate - Afr Amer 131 mL/min (>60); Glucose 83 mg/dL (74-106); Potassium 3.9 mmol/L (3.5-5.1); Sodium Level 136 mmol/L (136-145)
== END ==
LOC: OLS.WHLTSB 05:00
PROVIDERS: PCP Family Medicine; Visit Provider Internal Medicine
DX: D64.9 Anemia, unspecified (principal)
CPT/HCPCS: 36415; 80048; 85025

== ENCOUNTER → 2024-09-29 05:00 | Outpatient (REF) | payer MEDICARE, SELFPAY ==
[2024-09-29 09:09] LABS: Absolute Lymphocyte Count 1.19 X10^3/uL (0.83-4.51); Absolute Neutrophil Count 1.8 X10^3/uL (2.0-7.7); Basophil# 0.04 X10^3/uL; Basophil% 1.1 % (0-1); Eosinophil# 0.08 X10^3/uL; Eosinophils% 2.3 % (0-5); Hematocrit 36.6 % (40-54); Hemoglobin 11.5 g/dL (13.0-16.5); Lymphocyte # 1.19 X10^3/ul (0.83-4.51); Lymphocyte % 34.2 % (19-41); Mean Corp Hgb Conc 31.4 g/dL (32-36); Mean Corpuscular Hgb 28.5 pg (27.0-32.0); Mean Corpuscular Volume 90.6 fL (80-94); Mean Platelet Vol. 10.7 fl (6.2-12.0); Monocyte# 0.36 X10^3/uL; Monocyte% 10.3 % (0-10); NRBC Flagged by Analyzer 0 % (0-5); Neutrophil % 51.8 % (47-70); Platelet Count 178 K/mm3 (150-450); RBC Distribution Width CV 13.9 % (11.6-14.6); RBC Distribution Width SD 46.5 fl (35.1-43.9); Red Blood Count 4.04 M/mm3 (4.6-6.2); White Blood Count 3.5 K/mm3 (4.4-11.0)
[2024-09-29 09:24] LABS: Anion Gap 5 (5-15); BUN 15 mg/dL (7-18); BUN/Creat Ratio 18.9 RATIO (10-20); Calcium,Total 8.4 mg/dL (8.5-10.1); Chloride 105 mmol/L (98-107); Creatinine, Serum 0.79 mg/dL (0.70-1.30); EST Glomerular Filtration Rate 98 mL/min (>60); Est Glom Filt Rate - Afr Amer 119 mL/min (>60); Glucose 89 mg/dL (74-106); Potassium 3.9 mmol/L (3.5-5.1); Sodium Level 137 mmol/L (136-145)
== END ==
LOC: OLS.WHLTSB 05:00
PROVIDERS: PCP Family Medicine; Visit Provider Internal Medicine
DX: D64.9 Anemia, unspecified (principal)
CPT/HCPCS: 36415; 80048; 85025

== ENCOUNTER → 2024-10-27 05:00 | Outpatient (REF) | payer MEDICARE, SELFPAY ==
[2024-10-27 09:03] LABS: Hematocrit 37.2 % (40-54); Hemoglobin 12.5 g/dL (13.0-16.5); Mean Corp Hgb Conc 33.6 g/dL (32-36); Mean Corpuscular Hgb 29.7 pg (27.0-32.0); Mean Corpuscular Volume 88.4 fL (80-94); Mean Platelet Vol. 10.4 fl (6.2-12.0); Platelet Count 202 K/mm3 (150-450); RBC Distribution Width CV 14.2 % (11.6-14.6); RBC Distribution Width SD 45.1 fl (35.1-43.9); Red Blood Count 4.21 M/mm3 (4.6-6.2); White Blood Count 3.9 K/mm3 (4.4-11.0)
== END ==
LOC: OLS.WHLTSB 05:00
PROVIDERS: PCP Family Medicine; Visit Provider Family Medicine
DX: D64.9 Anemia, unspecified (principal); S62.336D Displaced fracture of neck of fifth metacarpal bone, right hand, subsequent encounter for fracture with routine healing; S51.812D Laceration without foreign body of left forearm, subsequent encounter; Z48.817 Encounter for surgical aftercare following surgery on the skin and subcutaneous tissue
CPT/HCPCS: 36415; 85027

== ENCOUNTER 2024-11-06 08:32 | Emergency (ER) | payer MEDICARE, SELFPAY ==
[2024-11-06 08:33] VITALS: BP 160/80; PULSE 73; RESP 18; TEMP 36.8; O2SAT 93
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
--- NOTE | 2024-11-06 08:53 | CT_ITS ---
PROCEDURE: SPINE CERVICAL WITHOUT CONTRAS REASON FOR EXAM: Trauma TECHNIQUE: Cervical spine CT without contrast. COMPARISON: None. FINDINGS: Alignment: Normal Vertebrae: No acute fracture Soft Tissues: Unremarkable Multilevel degenerative changes. CT/Spine Cervical without Contras IMPRESSION: No acute CT process in the cervical spine. One or more dose reduction techniques were used (e.g., Automated exposure contr ol, adjustment of the mA and/or kV according to patient size, use of iterative reconstruction technique). Reading Location: [facility]
--- NOTE | 2024-11-06 08:53 | CT_ITS ---
PROCEDURE: SPINE THORACIC WITHOUT CONTRAS REASON FOR EXAM: Trauma TECHNIQUE: CT thoracic spine without contrast. COMPARISON: None. FINDINGS: Alignment: Normal. Bones: Questionable minimally displaced posteromedial left-sided left 6th, 7th, 8th rib fractures with mild underlying pleural-parenchymal heterogeneity may reflect pulmonary contusion. No underlying pneumothorax. Soft Tissues: Unremarkable paraspinal tissues. Other: Visualized portions of the lungs are unremarkable. CT/Spine Thoracic without Contras IMPRESSION: Questionable minimally displaced posteromedial left-sided left 6th, 7th, 8th ri b fractures with mild underlying pleural-parenchymal heterogeneity may reflect pulmonary contusion. No underlyin g pneumothorax. One or more dose reduction techniques were used (e.g., Automated exposure contr ol, adjustment of the mA and/or kV according to patient size, use of iterative reconstruction technique). Reading [facility]
--- NOTE | 2024-11-06 08:53 | CT_ITS ---
PROCEDURE: SPINE LUMBAR WITHOUT CONTRAST REASON FOR EXAM: Trauma TECHNIQUE: Lumbar spine CT with contrast. COMPARISON: Reviewed from 2020. FINDINGS: New superior endplate compression deformity with approximately 20% loss of vertebral body height involving L2. Vertebroplasty changes of L1. Alignment: No spondylolisthesis. Multilevel degenerative changes Sacrum: Visualized upper sacrum and SI joints are unremarkable. Visualized retroperitoneal structures are unremarkable. CT/Spine Lumbar without Contrast IMPRESSION: New superior endplate compression fracture deformity with approximately 20% los s of vertebral body height involving L2. One or more dose reduction techniques were used (e.g., Automated exposure contr ol, adjustment of the mA and/or kV according to patient size, use of iterative reconstruction technique). Reading Location: [facility]
--- NOTE | 2024-11-06 08:53 | RAD_ITS ---
PROCEDURE: HIP, UNI W/ PELVIS 2-3 VIEWS REASON FOR EXAM: Trauma TECHNIQUE: Three views COMPARISON: None. FINDINGS: No fracture. No suspicious bone lesion. Degenerative changes of the bilateral hips. Vascular calcifications Normal alignment. Soft tissues are unremarkable. RAD/HIP, UNI W/ Pelvis 2-3 Views IMPRESSION: No acute radiographic process in the hips. [facility]
--- NOTE | 2024-11-06 08:53 | RAD_ITS ---
PROCEDURE: SHOULDER MIN 2 VIEWS REASON FOR EXAM: Trauma TECHNIQUE: Four views left shoulder COMPARISON: None. FINDINGS: Degenerative changes at the acromioclavicular and glenohumeral joint. Osseous structures of the shoulder are intact. Bone loss. Re-identified minimally displaced rib fractures on the left, previously described. RAD/Shoulder min 2 Views IMPRESSION: As above. Reading Location: [facility]
--- NOTE | 2024-11-06 08:53 | CT_ITS ---
EXAM: BRAIN/HEAD WITHOUT CONTRAST CLINICAL HISTORY: Trauma COMPARISON: None. TECHNIQUE: Noncontrast images of the head with multiplanar reconstructions. Dose reduction techniques were used including intermediate exposure control (AEC),iterative reconstruction technique, and/or mA and/or KV dose adjustments based on patient's size. FINDINGS: CT HEAD FINDINGS: No acute intracranial hemorrhage, mass, mass effect, midline shift or pathologic extra-axial fluid collection. No hydrocephalus. Age- appropriate cerebral volume and white matter. Visualized paranasal sinuses and mastoid air cells are clear. The calvarium is grossly intact. CT/Brain/Head without Contrast IMPRESSION: No CT evidence of acute intracranial pathology. Reading Location: [facility]
[2024-11-06] MEDS: Morphine 4 MG/ML Syringe IM (09:00)
[2024-11-06] MEDS: Lidocaine 1% (20 ml mdv) 20 ML Vial 5 ML INFILT (09:00)
[2024-11-06] MEDS: Diphth,Pertuss(Acell),Tet Vac 0.5 ML Vial IM (09:01)
--- NOTE | 2024-11-06 09:26 | RAD_ITS ---
PROCEDURE: HAND MIN 3 VIEWS REASON FOR EXAM: Trauma TECHNIQUE: Three views left hand COMPARISON: Comparison made to radiographs from 07/26/2024 FINDINGS: Minimally displaced fractures of the distal phalanx 3rd digit and 5th proximal phalanx are suspected distally. Necessary. CT is definitive as deemed clinically necessary. RAD/Hand Min 3 Views IMPRESSION: As above. Reading Location: [facility]
[2024-11-06 10:32] VITALS: BP 113/83; PULSE 77; RESP 18
[2024-11-06 10:44] LABS: Absolute Lymphocyte Count 0.83 X10^3/uL (0.83-4.51); Basophil# 0.03 X10^3/uL; Basophil% 0.6 % (0-1); Eosinophil# 0.02 X10^3/uL; Eosinophils% 0.4 % (0-5); Hematocrit 37.7 % (40-54); Hemoglobin 12.6 g/dL (13.0-16.5); Lymphocyte # 0.83 X10^3/ul (0.83-4.51); Lymphocyte % 15.5 % (19-41); Mean Corp Hgb Conc 33.4 g/dL (32-36); Mean Corpuscular Hgb 29.7 pg (27.0-32.0); Mean Corpuscular Volume 88.9 fL (80-94); Mean Platelet Vol. 9.6 fl (6.2-12.0); Monocyte% 9.3 % (0-10); NRBC Flagged by Analyzer 0 % (0-5); Neutrophil # 3.96 X10^3/uL (2.7-7.7); Platelet Count 159 K/mm3 (150-450); RBC Distribution Width CV 14.1 % (11.6-14.6); RBC Distribution Width SD 46.2 fl (35.1-43.9); Red Blood Count 4.24 M/mm3 (4.6-6.2); White Blood Count 5.4 K/mm3 (4.4-11.0)
[2024-11-06 11:11] LABS: Anion Gap 9 (5-15); BUN 8 mg/dL (7-18); BUN/Creat Ratio 11.7 RATIO (10-20); Calcium,Total 8.4 mg/dL (8.5-10.1); Chloride 102 mmol/L (98-107); Creatinine, Serum 0.68 mg/dL (0.70-1.30); EST Glomerular Filtration Rate 117 mL/min (>60); Est Glom Filt Rate - Afr Amer 142 mL/min (>60); Glucose 90 mg/dL (74-106); Potassium 3.9 mmol/L (3.5-5.1); Sodium Level 134 mmol/L (136-145)
[2024-11-06 12:03] VITALS: BP 126/84; PULSE 102; RESP 18; TEMP 36.9; O2SAT 96
== END 2024-11-06 12:27 | disposition home or self-care (01) ==
PROVIDERS: Emergency Provider Emergency Medicine; PCP Family Medicine; Visit Provider Emergency Medicine
DX: S22.42XA Multiple fractures of ribs, left side, initial encounter for closed fracture (principal); S32.029A Unspecified fracture of second lumbar vertebra, initial encounter for closed fracture; F03.90 Unspecified dementia, unspecified severity, without behavioral disturbance, psychotic disturbance, mood disturbance, and anxiety; S62.608A Fracture of unspecified phalanx of other finger, initial encounter for closed fracture; S51.811A Laceration without foreign body of right forearm, initial encounter; S51.812A Laceration without foreign body of left forearm, initial encounter; W19.XXXA Unspecified fall, initial encounter; S27.321A Contusion of lung, unilateral, initial encounter; M25.552 Pain in left hip; Y92.129 Unspecified place in nursing home as the place of occurrence of the external cause; Z79.899 Other long term (current) drug therapy
CPT/HCPCS: 12002; 70450; 72125; 72128; 72131; 73030; 73130; 73502; 80048; 85025; 90715; 96372; 99284; A4216

== ENCOUNTER 2024-11-06 14:45 | Emergency (ER) | payer MEDICARE, SELFPAY ==
[2024-11-06 14:49] VITALS: BP 174/95; PULSE 102; RESP 30; TEMP 37.5; O2SAT 92; BMI 26.6
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
[2024-11-06 15:10] LABS: Absolute Lymphocyte Count 0.78 X10^3/uL (0.83-4.51); Absolute Neutrophil Count 4.5 X10^3/uL (2.0-7.7); Basophil# 0.03 X10^3/uL; Basophil% 0.5 % (0-1); Hematocrit 38.8 % (40-54); Hemoglobin 12.6 g/dL (13.0-16.5); Lymphocyte # 0.78 X10^3/ul (0.83-4.51); Lymphocyte % 13.3 % (19-41); Mean Corp Hgb Conc 32.5 g/dL (32-36); Mean Corpuscular Hgb 29.3 pg (27.0-32.0); Mean Corpuscular Volume 90.2 fL (80-94); Mean Platelet Vol. 9.5 fl (6.2-12.0); Monocyte# 0.56 X10^3/uL; Monocyte% 9.6 % (0-10); NRBC Flagged by Analyzer 0 % (0-5); Neutrophil # 4.48 X10^3/uL (2.7-7.7); Neutrophil % 76.4 % (47-70); Platelet Count 165 K/mm3 (150-450); RBC Distribution Width CV 14.3 % (11.6-14.6); RBC Distribution Width SD 47.1 fl (35.1-43.9); White Blood Count 5.9 K/mm3 (4.4-11.0)
--- NOTE | 2024-11-06 15:20 | RAD_ITS ---
PROCEDURE: CHEST 1 VIEW (PORTABLE) REASON FOR EXAM: Cough TECHNIQUE: Frontal view of the chest. COMPARISON: Reviewed FINDINGS: Cardiomediastinal silhouette is stable. No large lobar consolidation. Numerous new minimally displaced left-sided rib fractures are see, for example affecting posterolateral 6th through 8th ribs. No underlying pneumothorax. RAD/Chest 1 View (Portable) IMPRESSION: As above. Reading Location: [facility]
[2024-11-06 15:28] LABS: AST(SGOT) 25 U/L (15-37); Alanine Aminotransfer ALT/SGPT 17 U/L (16-61); Albumin, Serum 3.6 g/dL (3.2-5.0); Alkaline Phosphatase 75 U/L (45-117); Anion Gap 8 (5-15); BUN 9 mg/dL (7-18); BUN/Creat Ratio 10.7 RATIO (10-20); Calcium,Total 8.6 mg/dL (8.5-10.1); Chloride 98 mmol/L (98-107); Creatinine, Serum 0.84 mg/dL (0.70-1.30); EST Glomerular Filtration Rate 92 mL/min (>60); Est Glom Filt Rate - Afr Amer 111 mL/min (>60); Estimated Creatinine Clearance 67.23 ml/min; Globulin 3.5 g/dL (2.2-4.2); Glucose 104 mg/dL (74-106); Potassium 3.7 mmol/L (3.5-5.1); Protein, Total 7.1 g/dL (6.4-8.2); Sodium Level 134 mmol/L (136-145)
[2024-11-06 15:36] VITALS: BP 175/95; PULSE 117; RESP 22; TEMP 39.1; O2SAT 94
[2024-11-06 15:45] LABS: Bacteria 0 SEEN /hpf (None Seen); Mucous, Urine 0 SEEN /hpf (<or=2+); Squamous Epithelial Cells - UA 0 SEEN /hpf (0-5)
[2024-11-06 15:46] LABS: Color, Urine Yellow (Yellow); Glucose, Dipstick Normal (Normal); Ketone-Dipstick 50 mg/dl (Negative); Leukocyte Esterase-Dipstick Negative /ul (Negative); Nitrite-Dipstick Negative (Negative); Occult Blood-Urine 25 /ul (Negative); Protein-Dipstick 15 mg/dl (Negative); Urine Bilirubin Dipstick Negative (Negative); Urine Clarity Clear (Clear); Urine Urobilinogen Normal (Normal)
[2024-11-06 15:51] VITALS: BP 186/95; PULSE 106; RESP 22; O2SAT 92
[2024-11-06] MEDS: Acetaminophen 325 MG Tablet 650 MG PO (16:01)
--- NOTE | 2024-11-06 16:08 | CT_ITS ---
EXAM: BRAIN/HEAD WITHOUT CONTRAST CLINICAL HISTORY: Pain COMPARISON: None. TECHNIQUE: Noncontrast images of the head with multiplanar reconstructions. Dose reduction techniques were used including intermediate exposure control (AEC),iterative reconstruction technique, and/or mA and/or KV dose adjustments based on patient's size. FINDINGS: CT HEAD FINDINGS: Chronic changes. No acute intracranial hemorrhage, mass, mass effect, midline shift or pathologic extra-axial fluid collection. No hydrocephalus. Age- appropriate cerebral volume and white matter. Visualized paranasal sinuses and mastoid air cells are clear. The calvarium is grossly intact. CT/Brain/Head without Contrast IMPRESSION: No CT evidence of acute intracranial pathology. Reading Location: [facility]
[2024-11-06 16:18] LABS: Red Blood Cells-Urine 5-10 SEEN /hpf (0-5); White Blood Cells 0-5 SEEN /hpf (0-5)
[2024-11-06 16:19] LABS: Hyaline Cast 0-5 SEEN /lpf (0-5)
[2024-11-06 16:21] LABS: Transitional Epithelial - Ur 0-5 SEEN /hpf (0-5)
[2024-11-06 16:39] VITALS: BP 186/95; PULSE 106; RESP 22; TEMP 39.1; O2SAT 92
[2024-11-06 16:46] VITALS: BP 151/67; PULSE 106; RESP 22; TEMP 37.2; O2SAT 94
[2024-11-06 17:52] VITALS: BP 128/74; PULSE 101; RESP 24; TEMP 37.2; O2SAT 93
--- NOTE | 2024-11-06 17:55 | ED.RN ---
spoke with Ronak to inform of COVID + and also transfer to [facility]
--- NOTE | 2024-11-06 18:02 | ED.RN ---
spoke with daughter to inform of transfer time and also COVID +
== END 2024-11-06 18:57 | disposition short-term general hospital (02) ==
PROVIDERS: Emergency Provider Emergency Medicine; PCP Family Medicine; Visit Provider Emergency Medicine
DX: U07.1 COVID-19 (principal); S32.029A Unspecified fracture of second lumbar vertebra, initial encounter for closed fracture; F03.90 Unspecified dementia, unspecified severity, without behavioral disturbance, psychotic disturbance, mood disturbance, and anxiety; R00.0 Tachycardia, unspecified; S22.42XA Multiple fractures of ribs, left side, initial encounter for closed fracture; S62.609A Fracture of unspecified phalanx of unspecified finger, initial encounter for closed fracture; W19.XXXA Unspecified fall, initial encounter
CPT/HCPCS: 70450; 71045; 80053; 81001; 83605; 85025; 87631; 99285; P9612; A4216

== ENCOUNTER → 2024-11-21 05:00 | Outpatient (REF) | payer MEDICARE, SELFPAY ==
[2024-11-21 06:32] LABS: Absolute Lymphocyte Count 1.37 X10^3/uL (0.83-4.51); Absolute Neutrophil Count 3.6 X10^3/uL (2.0-7.7); Basophil# 0.04 X10^3/uL; Basophil% 0.7 % (0-1); Eosinophil# 0.18 X10^3/uL; Eosinophils% 3.1 % (0-5); Hematocrit 39.6 % (40-54); Hemoglobin 12.8 g/dL (13.0-16.5); Lymphocyte # 1.37 X10^3/ul (0.83-4.51); Lymphocyte % 23.8 % (19-41); Mean Corp Hgb Conc 32.3 g/dL (32-36); Mean Corpuscular Hgb 29.2 pg (27.0-32.0); Mean Corpuscular Volume 90.4 fL (80-94); Mean Platelet Vol. 9.9 fl (6.2-12.0); Monocyte# 0.52 X10^3/uL; NRBC Flagged by Analyzer 0 % (0-5); Neutrophil # 3.64 X10^3/uL (2.7-7.7); Neutrophil % 63.2 % (47-70); Platelet Count 278 K/mm3 (150-450); RBC Distribution Width CV 13.9 % (11.6-14.6); Red Blood Count 4.38 M/mm3 (4.6-6.2); White Blood Count 5.8 K/mm3 (4.4-11.0)
[2024-11-21 06:52] LABS: ALB/GLOB Ratio 0.7 RATIO (0.9-2.4); AST(SGOT) 13 U/L (15-37); Alanine Aminotransfer ALT/SGPT 10 U/L (16-61); Albumin, Serum 2.6 g/dL (3.2-5.0); Alkaline Phosphatase 75 U/L (45-117); Anion Gap 9 (5-15); BUN 9 mg/dL (7-18); BUN/Creat Ratio 11.5 RATIO (10-20); Calcium,Total 8.9 mg/dL (8.5-10.1); Chloride 108 mmol/L (98-107); Creatinine, Serum 0.78 mg/dL (0.70-1.30); EST Glomerular Filtration Rate 100 mL/min (>60); Est Glom Filt Rate - Afr Amer 121 mL/min (>60); Globulin 3.8 g/dL (2.2-4.2); Glucose 91 mg/dL (74-106); Potassium 3.4 mmol/L (3.5-5.1); Protein, Total 6.4 g/dL (6.4-8.2); Sodium Level 140 mmol/L (136-145)
== END ==
LOC: OLS.WHLTSB 05:00
PROVIDERS: PCP Family Medicine; Visit Provider Family Medicine
DX: S51.812D Laceration without foreign body of left forearm, subsequent encounter (principal); S01.01XD Laceration without foreign body of scalp, subsequent encounter; M62.561 Muscle wasting and atrophy, not elsewhere classified, right lower leg; D64.9 Anemia, unspecified
CPT/HCPCS: 36415; 80053; 85025

== ENCOUNTER → 2024-11-23 | Outpatient (REF) | payer MEDICARE, SELFPAY | LOC: OLS.WHLTSB 05:00 | PROVIDERS: PCP Family Medicine; Visit Provider Nurse Practitioner Adult Health | DX: E87.6 Hypokalemia (principal) | CPT/HCPCS: 36415; 84132 ==

== ENCOUNTER → 2024-12-14 | Outpatient (REF) | payer MEDICARE, SELFPAY ==
[2024-12-14 07:49] LABS: Absolute Lymphocyte Count 1.75 X10^3/uL (0.83-4.51); Absolute Neutrophil Count 1.8 X10^3/uL (2.0-7.7); Basophil# 0.04 X10^3/uL; Eosinophil# 0.17 X10^3/uL; Eosinophils% 4.1 % (0-5); Hematocrit 38.5 % (40-54); Hemoglobin 12.8 g/dL (13.0-16.5); Lymphocyte # 1.75 X10^3/ul (0.83-4.51); Lymphocyte % 42.1 % (19-41); Mean Corp Hgb Conc 33.2 g/dL (32-36); Mean Corpuscular Hgb 29.8 pg (27.0-32.0); Mean Corpuscular Volume 89.7 fL (80-94); Mean Platelet Vol. 9.8 fl (6.2-12.0); Monocyte# 0.36 X10^3/uL; Monocyte% 8.7 % (0-10); NRBC Flagged by Analyzer 0 % (0-5); Neutrophil # 1.83 X10^3/uL (2.7-7.7); Neutrophil % 43.9 % (47-70); Platelet Count 174 K/mm3 (150-450); RBC Distribution Width CV 14.4 % (11.6-14.6); RBC Distribution Width SD 47.3 fl (35.1-43.9); Red Blood Count 4.29 M/mm3 (4.6-6.2); White Blood Count 4.2 K/mm3 (4.4-11.0)
[2024-12-14 08:30] LABS: AST(SGOT) 16 U/L (<=37); Alanine Aminotransfer ALT/SGPT < 5 U/L (<=46); Albumin, Serum 3.5 g/dL (3.4-4.8); Alkaline Phosphatase 72 U/L (40-129); Anion Gap 10 (5-15); BUN 12 mg/dL (4-19); BUN/Creat Ratio 15.4 RATIO (10-20); Bilirubin, Direct 0.17 mg/dL (0.00-0.30); Calcium,Total 8.8 mg/dL (7.6-11.0); Carbon Dioxide 23.6 mmol/L (21.0-32.0); Chloride 105 mmol/L (98-108); EST Glomerular Filtration Rate 86 (>60); Globulin 2.8 g/dL (2.2-4.2); Glucose 85 mg/dL (70-99); Potassium 3.9 mmol/L (3.3-5.1); Protein, Total 6.3 g/dL (5.9-8.4); Sodium Level 138 mmol/L (133-145); Total Bilirubin 0.44 mg/dL (0.00-1.30)
== END ==
LOC: OLS.WHLTSB 05:00
PROVIDERS: PCP Family Medicine; Visit Provider Internal Medicine
DX: D64.9 Anemia, unspecified (principal)
CPT/HCPCS: 36415; 80048; 80076; 85025

== ENCOUNTER → 2025-01-11 | Outpatient (REF) | payer MEDICARE, SELFPAY ==
[2025-01-11 08:07] LABS: Absolute Lymphocyte Count 1.45 X10^3/uL (0.83-4.51); Absolute Neutrophil Count 1.6 X10^3/uL (2.0-7.7); Basophil# 0.05 X10^3/uL; Basophil% 1.4 % (0-1); Eosinophil# 0.14 X10^3/uL; Eosinophils% 3.9 % (0-5); Hematocrit 34.7 % (40-54); Hemoglobin 11.6 g/dL (13.0-16.5); Lymphocyte # 1.45 X10^3/ul (0.83-4.51); Lymphocyte % 40.6 % (19-41); Mean Corp Hgb Conc 33.4 g/dL (32-36); Mean Corpuscular Hgb 29.7 pg (27.0-32.0); Mean Platelet Vol. 9.7 fl (6.2-12.0); Monocyte# 0.32 X10^3/uL; NRBC Flagged by Analyzer 0 % (0-5); Neutrophil % 44.8 % (47-70); Platelet Count 188 K/mm3 (150-450); RBC Distribution Width CV 14.1 % (11.6-14.6); RBC Distribution Width SD 45.8 fl (35.1-43.9); White Blood Count 3.6 K/mm3 (4.4-11.0)
[2025-01-11 08:24] LABS: Anion Gap 10 (5-15); BUN 16 mg/dL (4-19); BUN/Creat Ratio 21.1 RATIO (10-20); Calcium,Total 8.6 mg/dL (7.6-11.0); Carbon Dioxide 23.4 mmol/L (21.0-32.0); Chloride 106 mmol/L (98-108); Creatinine, Serum 0.77 mg/dL (0.70-1.20); EST Glomerular Filtration Rate 87 (>60); Glucose 86 mg/dL (70-99); Sodium Level 139 mmol/L (133-145)
== END ==
LOC: OLS.WHLTSB 05:00
PROVIDERS: PCP Family Medicine; Visit Provider Internal Medicine
DX: D64.9 Anemia, unspecified (principal)
CPT/HCPCS: 36415; 80048; 85025

== ENCOUNTER 2025-03-08 14:04 | Emergency (ER) | payer MEDICARE, SELFPAY ==
[2025-03-08 14:05] VITALS: TEMP 36.6
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
[2025-03-08 15:16] LABS: Absolute Lymphocyte Count 2.13 X10^3/uL (0.83-4.51); Absolute Neutrophil Count 2.1 X10^3/uL (2.0-7.7); Basophil# 0.03 X10^3/uL; Basophil% 0.6 % (0-1); Eosinophils% 2.1 % (0-5); Hematocrit 37.8 % (40-54); Hemoglobin 12.7 g/dL (13.0-16.5); Lymphocyte # 2.13 X10^3/ul (0.83-4.51); Lymphocyte % 45.1 % (19-41); Mean Corp Hgb Conc 33.6 g/dL (32-36); Mean Corpuscular Hgb 30.4 pg (27.0-32.0); Mean Corpuscular Volume 90.4 fL (80-94); Mean Platelet Vol. 9.7 fl (6.2-12.0); Monocyte# 0.38 X10^3/uL; Monocyte% 8.1 % (0-10); NRBC Flagged by Analyzer 0 % (0-5); Neutrophil # 2.07 X10^3/uL (2.7-7.7); Neutrophil % 43.9 % (47-70); Platelet Count 175 K/mm3 (150-450); RBC Distribution Width CV 13.7 % (11.6-14.6); RBC Distribution Width SD 45.9 fl (35.1-43.9); Red Blood Count 4.18 M/mm3 (4.6-6.2); White Blood Count 4.7 K/mm3 (4.4-11.0)
[2025-03-08 15:18] VITALS: BP 183/90; PULSE 99; RESP 16; O2SAT 99
[2025-03-08 15:43] LABS: ALB/GLOB Ratio 1.4 RATIO (0.9-2.4); AST(SGOT) 17 U/L (<=37); Alanine Aminotransfer ALT/SGPT 7 U/L (<=46); Albumin, Serum 3.9 g/dL (3.4-4.8); Alkaline Phosphatase 79 U/L (40-129); Anion Gap 10 (5-15); BUN 13 mg/dL (4-19); BUN/Creat Ratio 16.1 RATIO (10-20); Carbon Dioxide 24.1 mmol/L (21.0-32.0); Chloride 100 mmol/L (98-108); Creatinine, Serum 0.82 mg/dL (0.70-1.20); EST Glomerular Filtration Rate 85 (>60); Globulin 2.7 g/dL (2.2-4.2); Glucose 127 mg/dL (70-99); Potassium 4.1 mmol/L (3.3-5.1); Protein, Total 6.6 g/dL (5.9-8.4); Sodium Level 135 mmol/L (133-145); Total Bilirubin 0.35 mg/dL (0.00-1.30)
[2025-03-08 16:18] LABS: Mucous, Urine 0 SEEN /hpf (<or=2+); Squamous Epithelial Cells - UA 0 SEEN /hpf (0-5)
[2025-03-08 16:41] LABS: Color, Urine Straw (Yellow); Glucose, Dipstick Normal (Normal); Ketone-Dipstick Negative (Negative); Leukocyte Esterase-Dipstick 500 /ul (Negative); Nitrite-Dipstick Negative (Negative); Occult Blood-Urine 10 /ul (Negative); Protein-Dipstick 15 mg/dl (Negative); Urine Bilirubin Dipstick Negative (Negative); Urine Clarity Sl. Cloudy (Clear); Urine Urobilinogen Normal (Normal)
--- NOTE | 2025-03-08 16:52 | CT_ITS ---
PROCEDURE: BRAIN/HEAD WITHOUT CONTRAST 03/08/2025 REASON FOR EXAM: INJURY/PAIN TECHNIQUE: Head CT without intravenous contrast. Coronal and Sagittal reconstruction series were provided. One or more dose reduction techniques were used (e.g., Automated exposure control, adjustment of the mA and/or kV according to patient size, use of iterative reconstruction technique. RADIATION DOSE SUMMARY: CTDlvol: 44.99 mGy DLP: 829.85 mGycm COMPARISON: 11/06/2024. FINDINGS: [id number] global parenchymal atrophy. Periventricular white matter hypodensity likely representing chronic microvascular ischemia. No evidence of acute hemorrhage or infarction. No extra-axial blood or fluid collections. The paranasal sinuses are clear. The mastoid air cells are well aerated. The calvarial vault and skull base are intact. CT/Brain/Head without Contrast IMPRESSION: NO ACUTE FINDINGS Reading Location: [place] [id number]
[2025-03-08 16:59] VITALS: BP 164/98; PULSE 120; RESP 16; O2SAT 99
--- NOTE | 2025-03-08 17:05 | RAD_ITS ---
PROCEDURE: LUMBAR SPINE 2 OR 3 VIEWS 03/08/2025 REASON FOR EXAM: INJURY/PAIN TECHNIQUE: 2 view(s) of the lumbar spine COMPARISON: 11/06/2024 CT. FINDINGS: No evidence of acute fracture or dislocation. Similar moderate superior endplate compression of L1 with internal vertebral plasty. Moderate degenerative changes of the visualized spine. Levoscoliosis. RAD/Lumbar Spine 2 or 3 Views IMPRESSION: No acute osseous abnormalities. Details above. Reading Location: [place] [id number]
[2025-03-08 18:06] LABS: White Blood Cells >100 SEEN /hpf (0-5)
[2025-03-08 18:08] LABS: Bacteria 3+ /hpf (None Seen)
[2025-03-08 18:09] LABS: Red Blood Cells-Urine 0-5 SEEN /hpf (0-5)
[2025-03-08] MEDS: Ciprofloxacin 500 MG Tablet PO (18:46)
[2025-03-08 19:01] VITALS: BP 138/70; PULSE 70; RESP 18; TEMP 36.7; O2SAT 97
--- NOTE | 2025-03-08 19:06 | ED.RN ---
daughter nusrat updated on patients POC. attempted to call report to [facility] with no answer.
--- NOTE | 2025-03-08 20:24 | ED.RN ---
3rd attempt to call nurse to nurse report with no answer.
== END 2025-03-08 20:25 | disposition skilled nursing facility (03) ==
PROVIDERS: Emergency Provider Emergency Medicine; PCP Family Medicine; Referring Provider Emergency Medicine; Visit Provider Emergency Medicine
DX: N39.0 Urinary tract infection, site not specified (principal); F03.911 Unspecified dementia, unspecified severity, with agitation; S00.93XD Contusion of unspecified part of head, subsequent encounter; S30.0XXD Contusion of lower back and pelvis, subsequent encounter; W19.XXXD Unspecified fall, subsequent encounter; R00.0 Tachycardia, unspecified; Z66 Do not resuscitate
CPT/HCPCS: 70450; 72100; 80053; 81001; 85025; 87077; 87086; 87088; 87186; 99285; A4216

== ENCOUNTER → 2025-04-05 05:00 | Outpatient (REF) | payer MEDICARE, SELFPAY ==
[2025-04-05 07:29] LABS: Hematocrit 35.6 % (40-54); Hemoglobin 11.7 g/dL (13.0-16.5); Immature Granulocytes Count 0.000 X10^3/uL (0.0-0.0); Mean Corp Hgb Conc 32.9 g/dL (32-36); Mean Corpuscular Volume 92.5 fL (80-94); Mean Platelet Vol. 10.2 fl (6.2-12.0); NRBC Flagged by Analyzer 0 % (0-5); Platelet Count 191 K/mm3 (150-450); RBC Distribution Width CV 13.2 % (11.6-14.6); RBC Distribution Width SD 44.4 fl (35.1-43.9); Red Blood Count 3.85 M/mm3 (4.6-6.2); White Blood Count 4.2 K/mm3 (4.4-11.0)
[2025-04-05 08:01] LABS: AST(SGOT) 16 U/L (<=37); Alanine Aminotransfer ALT/SGPT 7 U/L (<=46); Albumin, Serum 3.2 g/dL (3.4-4.8); Alkaline Phosphatase 105 U/L (40-129); Anion Gap 9 (5-15); BUN 8 mg/dL (4-19); BUN/Creat Ratio 10.4 RATIO (10-20); Calcium,Total 8.6 mg/dL (7.6-11.0); Carbon Dioxide 25.4 mmol/L (21.0-32.0); Chloride 107 mmol/L (98-108); Globulin 2.7 g/dL (2.2-4.2); Glucose 87 mg/dL (70-99); Potassium 4.0 mmol/L (3.3-5.1)
== END ==
LOC: OLS.WHLTSB 05:00
PROVIDERS: PCP Family Medicine; Visit Provider Internal Medicine
DX: D64.9 Anemia, unspecified (principal)
CPT/HCPCS: 36415; 80053; 85025